=== PATIENT | female | born 1940 | race African-American/Black ===

== ENCOUNTER 2021-05-02 08:44 | Inpatient (IN) | payer OTHER, SELFPAY ==
[~2021-05-02] VITALS: Ht 157.5 cm; Wt 59.1 kg
[2021-05-02 08:51] VITALS: BP_SYST 142
--- NOTE | 2021-05-02 08:51 | NUR ---
Patient to ER bed 6 to gown for evaluation. Side rails up. Report given to Patricia RN.
--- NOTE | 2021-05-02 09:04 | NUR ---
Patient awake, alert and oriented to person, place, time and situation. Reports "15/10" pain to right knee; extreme swelling noted on assessment. HD fistula noted to right arm. PMH of hysterectomy, right mastectomy and unknown right hand surgery. Unsure of drug allergies. VSS. Will continue to monitor.
--- NOTE | 2021-05-02 09:08 | NUR ---
Dr Gifford at bedside to evaluate patient.
[2021-05-02] MEDS ORDERED: MORPHINE 4 MG INJ. 4 MG/ML VIAL IM ONE (09:30)
--- NOTE | 2021-05-02 09:36 | NUR ---
Per dtr, patient's dialysis has been rescheduled for tomorrow. She stated patient's "labs are normal" so she can go tomorrow afternoon.
[2021-05-02] MEDS ORDERED: LIDOCAINE 2%, 20 ML MDV INJ ONE (09:45)
[2021-05-02] MEDS ORDERED: BUPIVACAINE /PF 0.25% 30 ML VIAL INJ ONE (09:45)
[2021-05-02 09:48] LABS: BASOPHILS % (AUTO) 0.2 % (0.0-2.0); EOSINOPHILS % (AUTO) 0.2 % (0.0-4.0); HEMOGLOBIN 13.1 g/dL (12.0-16.0); LYMPHOCYTES # (AUTO) 0.6 K/uL (1.0-5.5); LYMPHOCYTES % (AUTO) 3.8 % (20.5-51.5); MEAN CORPUSCULAR HEMOGLOBIN 32 pg (27-31); MEAN CORPUSCULAR HGB CONC 34 % (32-36); MEAN CORPUSCULAR VOLUME 95 fL (79.0-98.0); MONOCYTES # (AUTO) 1.1 K/uL (0.0-1.0); MONOCYTES % (AUTO) 7.1 % (1.7-9.3); NEUTROPHILS # (AUTO) 13.7 K/uL (1.8-7.7); NEUTROPHILS % (AUTO) 88.7 % (40.0-70.0); PLATELET COUNT (AUTO) 127 K/uL (130-430); RED BLOOD CELL COUNT(AUTO) 4.12 MIL/uL (4.2-6.2); WHITE BLOOD COUNT (AUTO) 15.4 K/uL (4.8-10.8)
--- NOTE | 2021-05-02 09:48 | NUR ---
Carine cloud in ED - 05/02/21 at 0950 by SDEDJT Xray being done at bedside
--- NOTE | 2021-05-02 09:50 | NUR ---
Pt being transported to [facility] via wheelchair
[2021-05-02 09:54] LABS: ANION GAP 13 (5-15); CALCIUM 8.8 mg/dL (8.4-11.0); CHLORIDE 94 mmol/L (98-107); GLUCOSE 78 mg/dL (70-99); SODIUM SERUM 131 mmol/L (136-145); UREA NITROGEN, BLOOD 73 mg/dL (8-21)
[2021-05-02 09:58] LABS: INR 1.3 (0.8-1.2); PROTHROMBIN TIME 13.5 SECS (9.5-12.5)
--- NOTE | 2021-05-02 09:58 | NUR ---
Returned from Xray without complication.
[2021-05-02 10:00] LABS: ALANINE AMINOTRANSFERASE 19 U/L (12-78); ASPARTATE AMINOTRANSFERASE 28 U/L (10-37); TOTAL BILIRUBIN 0.3 mg/dL (0.0-1.0)
--- NOTE | 2021-05-02 10:00 | NUR ---
Dr Gifford at bedside to perform knee procedure.
[2021-05-02 10:08] LABS: CREATININE 8.68 mg/dL (0.55-1.30); POTASSIUM 6.3 mmol/L (3.5-5.1)
[2021-05-02] MEDS ORDERED: SODIUM POLYSTYRENE SULFONATE 15 GM/60 ML UDBTL PO ONE (10:15)
[2021-05-02] MEDS ORDERED: SODIUM BICARBONATE 0.5 MEQ/ML VIAL INJ ONE (10:15)
[2021-05-02] MEDS ORDERED: INSULIN REGULAR, HUMAN 10 UNITS/0.1 ML INJ IVP ONE (10:15)
[2021-05-02] MEDS ORDERED: DEXTROSE 50% JECT 50 ML DISP.SYRIN IVP ONE (10:15)
--- NOTE | 2021-05-02 10:34 | NUR ---
Right knee fluid sent to lab for evaluation
[2021-05-02] MEDS ORDERED: PIPERACILLIN/TAZO 3.375 GM in NS 50 ML IV ONE (10:45)
[2021-05-02] MEDS ORDERED: VANCOMYCIN HCL 1,000 MG in NS 250 ML IV ONE (10:45)
[2021-05-02] MEDS ORDERED: LOSA50TA3 PO (10:49)
[2021-05-02] MEDS ORDERED: HYDR-4038 PO (10:49)
[2021-05-02] MEDS ORDERED: LEVO25TA7 PO (10:49)
[2021-05-02] MEDS ORDERED: COR12.5 PO (10:49)
[2021-05-02] MEDS ORDERED: ALPR2TAB7 PO (10:49)
[2021-05-02] MEDS ORDERED: PRO40 PO (10:49)
[2021-05-02] MEDS ORDERED: NEU100 PO (10:49)
--- NOTE | 2021-05-02 10:49 | NUR ---
Medication reconciliation completed with information provided by dtr. Any prior medication reconciliation on file was reviewed and corrected.
[2021-05-02] MEDS ORDERED: SODIUM BICARBONATE 8.4% JECT 50 MEQ/50 ML SYRINGE IVP ONE (11:45)
[2021-05-02] MEDS ORDERED: PIPERACILLIN/TAZOBACTAM 3.375 GM/VIAL (ZOSYN) IV ONE (11:57)
--- NOTE | 2021-05-02 12:07 | NUR ---
Dr Kinsey at bedside to evaluate patient.
--- NOTE | 2021-05-02 12:08 | NUR ---
Blood sugar 148. Reported to Dr Gifford. No new orders given.
[2021-05-02] MEDS ORDERED: VANCOMYCIN HCL 1000 MG/VIAL IV ONE (12:37)
--- NOTE | 2021-05-02 14:10 | NUR ---
MRSA swab collected at bedside and sent to lab
[2021-05-02] MEDS ORDERED: SODIUM POLYSTYRENE SULFONATE 15 GM/60 ML UDBTL ONE ×2 (14:35→14:37)
[2021-05-02] MEDS: ALBUTEROL SULFATE 0.083% 2.5 MG/3 ML VIAL.NEB INH ONE ×2 (15:45→16:05)
--- NOTE | 2021-05-02 16:03 | NUR ---
Spoke with Dr Bianchi and RT to clarify Albuterol order. Also spoke with lab to confirm repeat potassium had been drawn; awaiting results. Will continue to monitor.
[2021-05-02 16:06] LABS: ANION GAP 8 (5-15); CALCIUM 8.6 mg/dL (8.4-11.0); CHLORIDE 95 mmol/L (98-107); GLUCOSE 57 mg/dL (70-99); SODIUM SERUM 129 mmol/L (136-145); UREA NITROGEN, BLOOD 76 mg/dL (8-21)
[2021-05-02 16:11] LABS: CREATININE 8.92 mg/dL (0.55-1.30)
[2021-05-02 16:12] LABS: POTASSIUM 5.9 mmol/L (3.5-5.1)
--- NOTE | 2021-05-02 17:26 | NUR ---
Dr Bianchi at bedside to provide update to dtr
--- NOTE | 2021-05-02 19:06 | NUR ---
Report given to Wilbert BAKER.
--- NOTE | 2021-05-02 19:30 | NUR ---
pt had a diarhea bm, pt cleaned and changed. gown replaced.
--- NOTE | 2021-05-02 20:50 | NUR ---
Transfer to 120A via ACLS protocol. Licensed nurse present. IV present no signs or symptoms of infiltration.
[2021-05-02 20:54] VITALS: BP_SYST 110
--- NOTE | 2021-05-02 21:43 | NUR ---
ADMIT NOTE Received pt from ER to the floor with a diagnosis of hyperkalemia septic ARTHRITIS. Admission process initiated. patient oriented to pain management, safety and call light-teach back done HD ongoing @ the bedside.
[2021-05-02] MEDS ORDERED: NALOXONE HCL 0.4 MG/ML AMP (NARCAN) IVP PRN ×2 (22:15)
[2021-05-02] MEDS ORDERED: HYDROcodone/ACETAMIN 10-325 MG TAB PO PRN (22:15)
[2021-05-02] MEDS ORDERED: ONDANSETRON HCL 4 MG/2 ML VIAL IVP PRN (22:15)
--- NOTE | 2021-05-02 23:42 | NUR ---
Pt sustaining increased heart rate 160-200 after dialysis with decreased blood pressure systolic <70. Charge nurse made aware, paging MD
--- NOTE | 2021-05-02 23:54 | NUR ---
PAGED DR. Eyal SNOWDEN, SPOKE W/ PETE.
[2021-05-03] VITALS (21 sets, daily range): BP systolic 87–133
--- NOTE | 2021-05-03 00:09 | NUR ---
SPOKE WITH DR Campoverde New orders received, 500 cc bolus and cardiology consult
--- NOTE | 2021-05-03 00:45 | NUR ---
CONSULT PAGED DR. MON , INCREASED HR, SPOKE W/ PERCY.
--- NOTE | 2021-05-03 00:52 | NUR ---
SPOKE WITH DR MON regarding increased HR, new orders received
--- NOTE | 2021-05-03 00:54 | NUR ---
HIGH ALERT NOTE: Called Dr. Howard back at identified within the medical roster to verify physician authenticity.
--- NOTE | 2021-05-03 01:05 | NUR ---
CONSULT DR. MARTIN, SEPTIC ARTHRITIS, AT NURSING STATION.
--- NOTE | 2021-05-03 01:10 | NUR ---
Dr Post at bedside Ordered to transfer pt to ICU along with albumin bolus for decreased BP
[2021-05-03] MEDS ORDERED: ALBUMIN HUMAN 25% 100 ML IV ONE ×2 (01:15→01:45)
[2021-05-03] MEDS ORDERED: AMIODARONE HCL 450 MG in D5W 241 ML IV SCH (01:15)
[2021-05-03] MEDS ORDERED: NOREPINEPHRINE BITARTRATE 4 MG in D5W 246 ML IV PRN (01:15)
[2021-05-03] MEDS ORDERED: AMIODARONE HCL 150 MG/3ML VIAL IVP ONE (01:15)
[2021-05-03] MEDS: D5/0.45 NS 1,000 ML IV SCH ×2 (01:55→08:15)
--- NOTE | 2021-05-03 03:02 | NUR ---
TRANSFER OF CARE Pt transferred to ICU, report given to RN. Pt daughter at bedside
--- NOTE | 2021-05-03 03:06 | NUR ---
Transfer Patient transferred from [facility] to ICU -4. Patient has a temp of 100.5. PRN tyenol given. patient's tachycardia, blood pressure 101/53 and o2 is 98 on nasal cannula. NO signs or symptoms of distress.
[2021-05-03] MEDS ORDERED: AMIODARONE HCL 450 MG/9 ML VIAL IV ONE (03:49)
[2021-05-03] MEDS ORDERED: PIPERACILLIN/TAZOBACTAM 2.25 GM VIAL IV ONE (03:58)
--- NOTE | 2021-05-03 05:05 | NUR ---
Nutrition Update Milton Scale 15 noted. Pt admitted for Septic arthritis and hyperkalemia Diet: Regular BMI: 20.2 kg/m2 RD to follow per nutrition care standards.
--- NOTE | 2021-05-03 05:26 | NUR ---
PAGED FOR CONSULT DIALED: [phone] SPOKE TO: ISMAEL
--- NOTE | 2021-05-03 05:27 | NUR ---
MD GUZMAN FOR CONSULT KORI DUFF DIALED: [phone] SPOKE TO:RADHA
--- NOTE | 2021-05-03 05:27 | NUR ---
PAGESvetlana FOR CONSULT BLAKE SMITH DIALED: [phone] SPOKE TO: HAILEE
--- NOTE | 2021-05-03 05:28 | NUR ---
MD GUZMAN FOR CONSULT DIALED: [phone] SPOKE TO: HAILEE
[2021-05-03] MEDS: PIPERACILLIN/TAZO 2.25G/DEX-IS 50 ML IV SCH ×3 (05:41→17:25)
[2021-05-03] MEDS: ACETAMINOPHEN 325 MG TABLET PO PRN ×2 (05:42→22:58)
--- NOTE | 2021-05-03 06:11 | NUR ---
exchange called back and stated that the patient can no longer get consult for DR. Dey (orthopedics) because she is no longer a patient for them
[2021-05-03] MEDS ORDERED: LEVOTHYROXINE SODIUM 0.025 MG TABLET PO SCH (07:00)
[2021-05-03 07:35] LABS: ALANINE AMINOTRANSFERASE 18 U/L (12-78); ALBUMIN 3.1 g/dL (3.4-4.8); ANION GAP 13 (5-15); ASPARTATE AMINOTRANSFERASE 24 U/L (10-37); CALCIUM 8.8 mg/dL (8.4-11.0); CHLORIDE 99 mmol/L (98-107); CREATININE 4.82 mg/dL (0.55-1.30); GLUCOSE 124 mg/dL (70-99); PHOSPHORUS 5.7 mg/dL (2.7-4.5); POTASSIUM 3.3 mmol/L (3.5-5.1); SODIUM SERUM 140 mmol/L (136-145); TOTAL BILIRUBIN 0.7 mg/dL (0.0-1.0); UREA NITROGEN, BLOOD 32 mg/dL (8-21)
[2021-05-03 08:15] LABS: BASOPHILS % (AUTO) 0.1 % (0.0-2.0); EOSINOPHILS % (AUTO) 0.6 % (0.0-4.0); HEMATOCRIT 31.4 % (36-48); HEMOGLOBIN 10.7 g/dL (12.0-16.0); LYMPHOCYTES # (AUTO) 0.2 K/uL (1.0-5.5); LYMPHOCYTES % (AUTO) 3.9 % (20.5-51.5); MEAN CORPUSCULAR HEMOGLOBIN 32 pg (27-31); MEAN CORPUSCULAR HGB CONC 34 % (32-36); MEAN CORPUSCULAR VOLUME 96 fL (79.0-98.0); MONOCYTES # (AUTO) 0.5 K/uL (0.0-1.0); MONOCYTES % (AUTO) 10.7 % (1.7-9.3); NEUTROPHILS # (AUTO) 4.3 K/uL (1.8-7.7); NEUTROPHILS % (AUTO) 84.7 % (40.0-70.0); PLATELET COUNT (AUTO) 105 K/uL (130-430); RED BLOOD CELL COUNT(AUTO) 3.29 MIL/uL (4.2-6.2); RED CELL DISTRIBUTION WIDTH 14.9 % (9.0-15.0); WHITE BLOOD COUNT (AUTO) 5.1 K/uL (4.8-10.8)
[2021-05-03] MEDS: GABAPENTIN 100 MG CAPSULE PO SCH (08:53)
[2021-05-03] MEDS: PANTOPRAZOLE SODIUM 40 MG TAB PO SCH (08:53)
[2021-05-03] MEDS: NEPHROVITE, (FOLIC ACID/VITAMIN B COMP W-C 1 TAB) PO SCH (08:54)
[2021-05-03] MEDS: LEVOTHYROXINE SODIUM 0.025 MG TABLET PO SCH (08:56)
[2021-05-03] MEDS: hydrALAZINE HCL 25 MG TABLET PO SCH ×2 (08:57→21:00)
[2021-05-03] MEDS ORDERED: LOSARTAN POTASSIUM 50 MG TABLET (COZAAR) PO SCH (09:00)
[2021-05-03] MEDS ORDERED: CARVEDILOL 12.5 MG TABLET (COREG) PO SCH (09:00)
[2021-05-03] MEDS: ALPRAZolam 0.25 MG TABLET PO SCH ×2 (09:00→22:12)
[2021-05-03] MEDS ORDERED: CARVEDILOL 6.25 MG TABLET (COREG) PO SCH (09:00)
[2021-05-03] MEDS ORDERED: LOSARTAN POTASSIUM 25 MG TABLET PO SCH (09:00)
--- NOTE | 2021-05-03 09:52 | NUR ---
Call placed to [facility] [phone]-regarding patient's admission and need to transfer due to lack of orthopedic provider to see patient.
[2021-05-03] MEDS ORDERED: HEPARIN SODIUM,PORCINE 5,000 UNITS/ML VIAL SUBCUT ONE (11:45)
--- NOTE | 2021-05-03 14:17 | NUR ---
Spoke w/Mony Baldev [phone] at [facility]-she stated pt is out of area, contact for hospital auth is Lydia at [facility] [phone]. She also stated [facility] has 99 patients currently in the ER waiting for beds. She will put the patient on the waiting list but she doubts there will be a bed available any time soon. Contacts for med gp for out pt services Max @[phone], after hrs @[phone]. I spoke w/the patient's daughter, Emmanuelle [phone], and gave her the information I had about the patient's transfer.
--- NOTE | 2021-05-03 18:10 | NUR ---
Transfer note Received a call from Dr. Bianchi, the ER MD who took care of the patient in the ED. He wanted info as to why the patient didn't go to [facility] since arrangements had been made and bed secured. There was no documentation in the record for anyone to see. After conversation, ER MT came down to clarify conversation.
--- NOTE | 2021-05-03 18:40 | NUR ---
PAGED FOR ORDERS SPOKE TO:
--- NOTE | 2021-05-03 19:10 | NUR ---
OPENING NOTE SBAR report received from day RN, all cares assumed. Pt on O2 2LPM via NC, maintaining saturation >90%.
--- NOTE | 2021-05-03 19:10 | NUR ---
Spoke with Dr. Campoverde and informed him that Dr. Bianchi would like to speak with him about the transfer that was arranged from the ED to [facility] once pt received dialysis as an inpatient. He said he would call him.
--- NOTE | 2021-05-03 20:00 | NUR ---
Pt cleaned, linen changed. Pt moans and grimaces with turning. Will continue to monitor.
--- NOTE | 2021-05-03 20:05 | NUR ---
IV catheter out, placed new PIV in left forearm, 20g. Blood return noted, flushed with normal saline. No redness, warmth or swelling at site.
--- NOTE | 2021-05-03 20:30 | NUR ---
Family at bedside, update given, all questions answered at this time.
[2021-05-03] MEDS: CARVEDILOL 3.125 MG TABLET (COREG) PO SCH (21:00)
[2021-05-03] MEDS: LOSARTAN POTASSIUM 50 MG TABLET (COZAAR) PO SCH (21:00)
[2021-05-03] MEDS: HEPARIN SODIUM,PORCINE 5,000 UNITS/ML VIAL SUBCUT SCH (22:11)
[2021-05-04] VITALS (20 sets, daily range): BP systolic 91–166
[2021-05-04] MEDS: PIPERACILLIN/TAZO 2.25G/DEX-IS 50 ML IV SCH ×3 (01:33→17:07)
[2021-05-04] MEDS: D5/0.45 NS 1,000 ML IV SCH ×2 (05:22→14:15)
[2021-05-04] MEDS ORDERED: NOREPINEPHRINE 4 MG/4 ML VIAL IV ONE ×2 (06:04→12:09)
[2021-05-04 06:24] LABS: BASOPHILS % (AUTO) 0.1 % (0.0-2.0); EOSINOPHILS % (AUTO) 0.2 % (0.0-4.0); HEMATOCRIT 30.2 % (36-48); HEMOGLOBIN 10.2 g/dL (12.0-16.0); LYMPHOCYTES # (AUTO) 0.4 K/uL (1.0-5.5); LYMPHOCYTES % (AUTO) 6.2 % (20.5-51.5); MEAN CORPUSCULAR HEMOGLOBIN 32 pg (27-31); MEAN CORPUSCULAR HGB CONC 34 % (32-36); MEAN CORPUSCULAR VOLUME 95 fL (79.0-98.0); MONOCYTES # (AUTO) 0.4 K/uL (0.0-1.0); MONOCYTES % (AUTO) 7.5 % (1.7-9.3); PLATELET COUNT (AUTO) 78 K/uL (130-430); RED BLOOD CELL COUNT(AUTO) 3.17 MIL/uL (4.2-6.2); RED CELL DISTRIBUTION WIDTH 14.7 % (9.0-15.0); WHITE BLOOD COUNT (AUTO) 5.8 K/uL (4.8-10.8)
[2021-05-04 06:43] LABS: ALANINE AMINOTRANSFERASE 11 U/L (12-78); ALBUMIN 2.3 g/dL (3.4-4.8); ANION GAP 15 (5-15); ASPARTATE AMINOTRANSFERASE 34 U/L (10-37); CALCIUM 7.5 mg/dL (8.4-11.0); CHLORIDE 95 mmol/L (98-107); CREATININE 5.92 mg/dL (0.55-1.30); GLUCOSE 89 mg/dL (70-99); PHOSPHORUS 6.7 mg/dL (2.7-4.5); POTASSIUM 3.1 mmol/L (3.5-5.1); SODIUM SERUM 136 mmol/L (136-145); TOTAL BILIRUBIN 0.4 mg/dL (0.0-1.0); UREA NITROGEN, BLOOD 45 mg/dL (8-21); VANCOMYCIN,RANDOM 10.8 ug/mL
--- NOTE | 2021-05-04 07:30 | NUR ---
INITIAL REPORT RECEIVED FROM NIGHT RN FOR CONTINUING OF CARE. ALSO RECEIVED ORDER FROM MD MON TO DISCONTINUED AMIODARONE DRIP & CHANGE TO PO AMIODARONE 200 MG DAILY
[2021-05-04 08:08] LABS: C-REACTIVE PROTEIN QUANT 35.2 mg/dL (0-0.5)
[2021-05-04 08:58] LABS: ERYTHROCYTE SEDIMENTATION RATE 54 MM/HR (0-20)
[2021-05-04] MEDS: PANTOPRAZOLE SODIUM 40 MG TAB PO SCH (09:00)
[2021-05-04] MEDS: GABAPENTIN 100 MG CAPSULE PO SCH (09:00)
[2021-05-04] MEDS: LOSARTAN POTASSIUM 50 MG TABLET (COZAAR) PO SCH (09:00)
[2021-05-04] MEDS: hydrALAZINE HCL 25 MG TABLET PO SCH ×2 (09:00→22:28)
[2021-05-04] MEDS: ALPRAZolam 0.25 MG TABLET PO SCH ×2 (09:00→22:28)
[2021-05-04] MEDS ORDERED: AMIODARONE HCL 200 MG TABLET PO ONE (09:00)
[2021-05-04] MEDS: CARVEDILOL 3.125 MG TABLET (COREG) PO SCH (09:00)
[2021-05-04] MEDS: NEPHROVITE, (FOLIC ACID/VITAMIN B COMP W-C 1 TAB) PO SCH (09:08)
[2021-05-04] MEDS: ACETAMINOPHEN 325 MG TABLET PO PRN (09:09)
[2021-05-04] MEDS: LEVOTHYROXINE SODIUM 0.025 MG TABLET PO SCH (09:09)
--- NOTE | 2021-05-04 13:30 | NUR ---
Spoke w/Dr Bertin Rincon. He has agreed to see the patient for orthopedic consult. AISHA will be sent to him. He will see the patient Sunday evening or AM.
[2021-05-04] MEDS: HEPARIN SODIUM,PORCINE 5,000 UNITS/ML VIAL SUBCUT SCH ×2 (15:00→21:00)
[2021-05-04] MEDS ORDERED: KCL 40 mEq in 100 mL (PREMIX) 100 ML IV ONE (17:30)
[2021-05-04] MEDS ORDERED: POTASSIUM CHLORIDE 40 MEQ in NS 250 ML IV ONE (18:00)
--- NOTE | 2021-05-04 19:10 | NUR ---
OPENING NOTE SBAR report received from day RN, all cares assumed. Pt on 5 LPM oxygen via NC.
--- NOTE | 2021-05-04 19:30 | NUR ---
ENDORSEMENT REPORT GIVEN TO NIGHT RN FOR CONTINUING OF CARE
--- NOTE | 2021-05-04 22:30 | NUR ---
Dr. Rincon at bedside for consult. Family at bedside. Plan of care being discussed with family.
[2021-05-05] VITALS (21 sets, daily range): BP systolic 92–155
[2021-05-05] MEDS: PIPERACILLIN/TAZO 2.25G/DEX-IS 50 ML IV SCH ×3 (01:57→16:01)
[2021-05-05] MEDS: D5/0.45 NS 1,000 ML IV SCH ×3 (01:57→20:15)
[2021-05-05 06:28] LABS: HEMATOCRIT 35.8 % (36-48); HEMOGLOBIN 11.6 g/dL (12.0-16.0); MEAN CORPUSCULAR HEMOGLOBIN 31 pg (27-31); MEAN CORPUSCULAR HGB CONC 32 % (32-36); MEAN CORPUSCULAR VOLUME 96 fL (79.0-98.0); PLATELET COUNT (AUTO) 80 K/uL (130-430); RED BLOOD CELL COUNT(AUTO) 3.75 MIL/uL (4.2-6.2); RED CELL DISTRIBUTION WIDTH 14.9 % (9.0-15.0); WHITE BLOOD COUNT (AUTO) 13.7 K/uL (4.8-10.8)
[2021-05-05 06:39] LABS: ANION GAP 10 (5-15); CALCIUM 8.4 mg/dL (8.4-11.0); CHLORIDE 100 mmol/L (98-107); GLUCOSE 112 mg/dL (70-99); PHOSPHORUS 3.1 mg/dL (2.7-4.5); SODIUM SERUM 134 mmol/L (136-145); UREA NITROGEN, BLOOD 29 mg/dL (8-21)
[2021-05-05 07:44] LABS: C-REACTIVE PROTEIN QUANT 29.8 mg/dL (0-0.5)
[2021-05-05] MEDS: hydrALAZINE HCL 25 MG TABLET PO SCH ×2 (09:00→21:00)
[2021-05-05] MEDS: ALPRAZolam 0.25 MG TABLET PO SCH ×2 (09:00→21:00)
[2021-05-05] MEDS: GABAPENTIN 100 MG CAPSULE PO SCH (09:40)
[2021-05-05] MEDS: AMIODARONE HCL 200 MG TABLET PO SCH (09:43)
[2021-05-05] MEDS: LEVOTHYROXINE SODIUM 0.025 MG TABLET PO SCH (09:43)
[2021-05-05] MEDS: NEPHROVITE, (FOLIC ACID/VITAMIN B COMP W-C 1 TAB) PO SCH (09:44)
[2021-05-05] MEDS: PANTOPRAZOLE SODIUM 40 MG TAB PO SCH (09:46)
[2021-05-05] MEDS: HEPARIN SODIUM,PORCINE 5,000 UNITS/ML VIAL SUBCUT SCH ×2 (09:50→22:13)
[2021-05-05 10:32] LABS: ERYTHROCYTE SEDIMENTATION RATE 70 MM/HR (0-20)
--- NOTE | 2021-05-05 14:38 | NUR ---
Patient seen by Dr Rincon-jimena was given [facility] LETA Freeman's phone # [phone] and authorization # [id number] for inpatient stay and physician authorization.
[2021-05-05 15:19] LABS: BASOPHILS % (MANUAL) 0 % (0-2)
[2021-05-05 15:22] LABS: BAND % (MANUAL) 8 % (0-6); EOSINOPHILS % (MANUAL) 1 % (0-7); LYMPHOCYTES % (MANUAL) 5 % (20-46); METAMYELOCYTES % 0 % (0-0); MONOCYTES % (MANUAL) 5 % (0-11)
--- NOTE | 2021-05-05 17:08 | NUR ---
Dietitian Recommendations * Recommend renal, finely chopped diet w/ Nepro TID (ONS provides 1260 kcal/day, 57 gm protein/day) * Encourage increase PO intakes * Adhere to pt food preferences LP, RD Please refer to Nutrition Assessment for details. Addendum: 05/05/21 at [address] Amended: Links added.
[2021-05-05] MEDS: ACETAMINOPHEN 325 MG TABLET PO PRN (17:13)
--- NOTE | 2021-05-05 19:30 | NUR ---
Patient's heart rate [address] Howard was contacted; orders to start Amiodarone drip received.
--- NOTE | 2021-05-05 19:33 | NUR ---
PAGED DR. MON ORDERS [phone] SPOKE WITH CRISTIAN
[2021-05-05] MEDS ORDERED: AMIODARONE HCL 150 MG in D5W 100 ML IV ONE (19:45)
--- NOTE | 2021-05-05 19:52 | NUR ---
PAGED DR. GORDON ORDERS [phone] SPOKE WITH IVONE
--- NOTE | 2021-05-05 20:00 | NUR ---
Dr Correa contacted for clearance on placement of Picc line; ok to place midline to Left arm.
--- NOTE | 2021-05-05 20:45 | NUR ---
Call received from radiology regarding CT abd/pelvis with contrast. Unable to complete at this time due to patient's condition unstable. Heart rate 185 and BP 87/40. Requires continuous infusion of amiodarone.
--- NOTE | 2021-05-05 21:00 | NUR ---
Mid line placed by Dominic RN picc line nurse. No complications reported. OK to use.
--- NOTE | 2021-05-05 21:01 | NUR ---
Mid line Left upper arm in place, patent and ready for use.
[2021-05-05] MEDS: AMIODARONE HCL 450 MG in D5W 241 ML IV SCH (22:07)
[2021-05-06] VITALS (19 sets, daily range): BP systolic 113–187
[2021-05-06] MEDS: PIPERACILLIN/TAZO 2.25G/DEX-IS 50 ML IV SCH ×3 (00:43→17:38)
--- NOTE | 2021-05-06 01:00 | NUR ---
Patient's heart rate has decreased to 85 and converted to NSR.
--- NOTE | 2021-05-06 02:00 | NUR ---
Dr Loni Post at bedside for evaluation; no new orders received. Dr Post stated patient will be ready for transfer in am.
[2021-05-06] MEDS ORDERED: AMIODARONE HCL 450 MG/9 ML VIAL IV ONE (04:25)
[2021-05-06] MEDS: AMIODARONE HCL 450 MG in D5W 241 ML IV SCH (04:32)
[2021-05-06] MEDS: D5/0.45 NS 1,000 ML IV SCH ×2 (04:42→16:26)
[2021-05-06 06:37] LABS: BASOPHILS % (AUTO) 0.1 % (0.0-2.0); EOSINOPHILS # (AUTO) 0.2 K/uL (0.0-0.4); EOSINOPHILS % (AUTO) 2.3 % (0.0-4.0); HEMATOCRIT 32.2 % (36-48); HEMOGLOBIN 10.7 g/dL (12.0-16.0); LYMPHOCYTES # (AUTO) 0.4 K/uL (1.0-5.5); MEAN CORPUSCULAR HEMOGLOBIN 31 pg (27-31); MEAN CORPUSCULAR HGB CONC 33 % (32-36); MEAN CORPUSCULAR VOLUME 94 fL (79.0-98.0); MONOCYTES # (AUTO) 0.5 K/uL (0.0-1.0); MONOCYTES % (AUTO) 5.7 % (1.7-9.3); NEUTROPHILS # (AUTO) 8.2 K/uL (1.8-7.7); PLATELET COUNT (AUTO) 52 K/uL (130-430); RED BLOOD CELL COUNT(AUTO) 3.42 MIL/uL (4.2-6.2); RED CELL DISTRIBUTION WIDTH 15.3 % (9.0-15.0); WHITE BLOOD COUNT (AUTO) 9.3 K/uL (4.8-10.8)
[2021-05-06 06:47] LABS: ALANINE AMINOTRANSFERASE 15 U/L (12-78); ALBUMIN 1.6 g/dL (3.4-4.8); ANION GAP 12 (5-15); ASPARTATE AMINOTRANSFERASE 22 U/L (10-37); CALCIUM 8.1 mg/dL (8.4-11.0); CHLORIDE 94 mmol/L (98-107); CREATININE 4.49 mg/dL (0.55-1.30); GLUCOSE 101 mg/dL (70-99); PHOSPHORUS 2.7 mg/dL (2.7-4.5); POTASSIUM 3.6 mmol/L (3.5-5.1); SODIUM SERUM 126 mmol/L (136-145); TOTAL BILIRUBIN 0.4 mg/dL (0.0-1.0); UREA NITROGEN, BLOOD 38 mg/dL (8-21)
[2021-05-06 07:35] LABS: NEUTROPHILS % (AUTO) 87.9 % (40.0-70.0)
[2021-05-06] MEDS: hydrALAZINE HCL 25 MG TABLET PO SCH ×2 (09:00→21:00)
[2021-05-06] MEDS: ALPRAZolam 0.25 MG TABLET PO SCH ×2 (09:00→21:00)
[2021-05-06] MEDS ORDERED: DIATR MEGLU/DIATRIZ SOD 30 ML SOLUTION PO ONE (09:13)
[2021-05-06] MEDS: NEPHROVITE, (FOLIC ACID/VITAMIN B COMP W-C 1 TAB) PO SCH (09:43)
[2021-05-06] MEDS: AMIODARONE HCL 200 MG TABLET PO SCH (09:43)
[2021-05-06] MEDS: LEVOTHYROXINE SODIUM 0.025 MG TABLET PO SCH (09:43)
[2021-05-06] MEDS: GABAPENTIN 100 MG CAPSULE PO SCH (09:44)
[2021-05-06] MEDS: PANTOPRAZOLE SODIUM 40 MG TAB PO SCH (09:44)
[2021-05-06] MEDS: HEPARIN SODIUM,PORCINE 5,000 UNITS/ML VIAL SUBCUT SCH ×2 (09:44→21:29)
--- NOTE | 2021-05-06 10:00 | NUR ---
Dr simms made round and s/w daughter at the bedside discuss about the poc. order to proceed CT scan of A/P with IV contrast, stated no need for oral contrast. Devil Dog don informed.
--- NOTE | 2021-05-06 11:00 | NUR ---
Us abdomen and CT scan of A/P done.
[2021-05-06 11:44] LABS: C-REACTIVE PROTEIN QUANT 20.3 mg/dL (0-0.5)
[2021-05-06 13:55] LABS: ERYTHROCYTE SEDIMENTATION RATE 66 MM/HR (0-20)
--- NOTE | 2021-05-06 14:30 | NUR ---
Called Dr. Pascual with a consult, spoke with Conchita from doctors office
--- NOTE | 2021-05-06 14:40 | NUR ---
Called Dr. Avila with a consult,spoke with Olivia from doctors office
--- NOTE | 2021-05-06 15:00 | NUR ---
Carmen LEMOS MADE AWARE ABOUT THE RESULT OF CT SCAN AND ULTRASOUND. S/W DAUGHTER AT THE BEDSIDE.
--- NOTE | 2021-05-06 16:30 | NUR ---
patient dialyzed 2 liters output. vital sign stable, afebrile. family at the bedside.
--- NOTE | 2021-05-06 19:00 | NUR ---
NOTES;NO SIGN AND SYMPTOMS OF DISTRESS.VITAL SIGN STABLE, AFEBRILE. NO SIGNIFICANT CHANGES OF CONDITION. FAMILY AT THE BEDSIDE.
[2021-05-06] MEDS: HYDROcodone/ACETAMIN 5-325 MG TAB (NORCO/ VICODIN) PO PRN (20:32)
[2021-05-07] VITALS (17 sets, daily range): BP systolic 112–141
[2021-05-07] MEDS: PIPERACILLIN/TAZO 2.25G/DEX-IS 50 ML IV SCH ×2 (00:48→09:02)
[2021-05-07] MEDS: D5/0.45 NS 1,000 ML IV SCH ×3 (01:42→15:14)
[2021-05-07 07:40] LABS: BASOPHILS % (AUTO) 0.2 % (0.0-2.0); EOSINOPHILS # (AUTO) 0.1 K/uL (0.0-0.4); EOSINOPHILS % (AUTO) 0.8 % (0.0-4.0); HEMATOCRIT 33.6 % (36-48); HEMOGLOBIN 11.2 g/dL (12.0-16.0); LYMPHOCYTES # (AUTO) 0.6 K/uL (1.0-5.5); LYMPHOCYTES % (AUTO) 5.7 % (20.5-51.5); MEAN CORPUSCULAR HEMOGLOBIN 31 pg (27-31); MEAN CORPUSCULAR HGB CONC 33 % (32-36); MEAN CORPUSCULAR VOLUME 94 fL (79.0-98.0); MONOCYTES # (AUTO) 1.1 K/uL (0.0-1.0); MONOCYTES % (AUTO) 10.5 % (1.7-9.3); NEUTROPHILS # (AUTO) 8.3 K/uL (1.8-7.7); NEUTROPHILS % (AUTO) 82.8 % (40.0-70.0); RED BLOOD CELL COUNT(AUTO) 3.57 MIL/uL (4.2-6.2); RED CELL DISTRIBUTION WIDTH 14.9 % (9.0-15.0); WHITE BLOOD COUNT (AUTO) 10.1 K/uL (4.8-10.8)
--- NOTE | 2021-05-07 08:00 | NUR ---
Initial Awake, responsive, still has pain, family at bedside. On amiodarone drip. Hr at 87. denies any chest pain or shortness of breath. on o2 2l, tolerating well.
[2021-05-07] MEDS: GABAPENTIN 100 MG CAPSULE PO SCH ×2 (09:00→09:03)
[2021-05-07] MEDS: ALPRAZolam 0.25 MG TABLET PO SCH ×3 (09:00→21:00)
[2021-05-07] MEDS: NEPHROVITE, (FOLIC ACID/VITAMIN B COMP W-C 1 TAB) PO SCH (09:03)
[2021-05-07] MEDS: LEVOTHYROXINE SODIUM 0.025 MG TABLET PO SCH (09:04)
[2021-05-07] MEDS: AMIODARONE HCL 200 MG TABLET PO SCH (09:04)
[2021-05-07] MEDS: PANTOPRAZOLE SODIUM 40 MG TAB PO SCH (09:04)
[2021-05-07] MEDS: HEPARIN SODIUM,PORCINE 5,000 UNITS/ML VIAL SUBCUT SCH (09:05)
[2021-05-07] MEDS: hydrALAZINE HCL 25 MG TABLET PO SCH ×2 (09:07→21:00)
[2021-05-07 09:57] LABS: ANION GAP 9 (5-15); CALCIUM 8.6 mg/dL (8.4-11.0); CHLORIDE 95 mmol/L (98-107); CREATININE 3.19 mg/dL (0.55-1.30); GLUCOSE 93 mg/dL (70-99); PHOSPHORUS 2.3 mg/dL (2.7-4.5); POTASSIUM 3.7 mmol/L (3.5-5.1); SODIUM SERUM 131 mmol/L (136-145); UREA NITROGEN, BLOOD 23 mg/dL (8-21)
--- NOTE | 2021-05-07 10:00 | NUR ---
MD ROUNDS DR. HIRSCH HERE AND SEEN PATIENT.
[2021-05-07 10:55] LABS: PLATELET COUNT (AUTO) 47 K/uL (130-430)
--- NOTE | 2021-05-07 11:05 | NUR ---
MD Christie aden, re: platelet results.
[2021-05-07 11:28] LABS: C-REACTIVE PROTEIN QUANT 17.4 mg/dL (0-0.5)
--- NOTE | 2021-05-07 11:30 | NUR ---
Notes- Repositioned, pain is controlled, family at bedside. Enc to call for help or pain medications is needed.
--- NOTE | 2021-05-07 12:29 | NUR ---
ROUNDS SEEN BY DR. Adriana SNOWDEN, COVERING FOR DR. MON. MD ORDERED TO DISCONTINUE AMIODARONE DRIP AFTER BAG FINISHED AND THE ORAL AND TO START PATIENT WITH COREG.
[2021-05-07 12:57] LABS: ERYTHROCYTE SEDIMENTATION RATE 78 MM/HR (0-20)
--- NOTE | 2021-05-07 13:55 | NUR ---
Notes- Amiodarone bag finished, discontinue as ordered.
--- NOTE | 2021-05-07 14:16 | NUR ---
notes- Pt refused doppler scan on both lower extremities.
--- NOTE | 2021-05-07 14:30 | NUR ---
Spoke to dr. mireles and made aware of platelets results, MD order to call infectious doctor for possible antibiotics change.
--- NOTE | 2021-05-07 15:04 | NUR ---
Paged Dr. Post, waiting for Md to call back.
--- NOTE | 2021-05-07 15:19 | NUR ---
MEGAN SNOWDEN FOR ORDERS USED PAGER NUMBER PROVIDED Addendum: 05/07/21 at 1521 by Armando Luo WI/ CHARTING WAS DONE ON WRONG PATIENT
--- NOTE | 2021-05-07 18:30 | NUR ---
Closing notes Awake, family at bedside talking with Dr. Post at bedside. No distress
--- NOTE | 2021-05-07 20:03 | NUR ---
PAGED DR. WEEKS [phone] SPOKE WITH SARABJIT
[2021-05-07] MEDS: CARVEDILOL 6.25 MG TABLET (COREG) PO SCH (21:00)
[2021-05-08] VITALS (19 sets, daily range): BP systolic 98–149
[2021-05-08 06:45] LABS: INR 1.1 (0.8-1.2); PROTHROMBIN TIME 11.8 SECS (9.5-12.5)
[2021-05-08 06:50] LABS: BASOPHILS % (AUTO) 0.1 % (0.0-2.0); EOSINOPHILS # (AUTO) 0.1 K/uL (0.0-0.4); EOSINOPHILS % (AUTO) 1.1 % (0.0-4.0); HEMOGLOBIN 9.8 g/dL (12.0-16.0); LYMPHOCYTES # (AUTO) 0.6 K/uL (1.0-5.5); LYMPHOCYTES % (AUTO) 4.8 % (20.5-51.5); MEAN CORPUSCULAR HEMOGLOBIN 31 pg (27-31); MEAN CORPUSCULAR HGB CONC 33 % (32-36); MEAN CORPUSCULAR VOLUME 95 fL (79.0-98.0); MONOCYTES # (AUTO) 1.1 K/uL (0.0-1.0); MONOCYTES % (AUTO) 8.4 % (1.7-9.3); NEUTROPHILS # (AUTO) 11.1 K/uL (1.8-7.7); NEUTROPHILS % (AUTO) 85.6 % (40.0-70.0); PLATELET COUNT (AUTO) 54 K/uL (130-430); RED BLOOD CELL COUNT(AUTO) 3.17 MIL/uL (4.2-6.2); WHITE BLOOD COUNT (AUTO) 12.9 K/uL (4.8-10.8)
[2021-05-08 07:07] LABS: ANION GAP 11 (5-15); CALCIUM 8.2 mg/dL (8.4-11.0); CHLORIDE 93 mmol/L (98-107); CREATININE 4.12 mg/dL (0.55-1.30); GLUCOSE 88 mg/dL (70-99); PHOSPHORUS 3.1 mg/dL (2.7-4.5); POTASSIUM 3.7 mmol/L (3.5-5.1); SODIUM SERUM 127 mmol/L (136-145); UREA NITROGEN, BLOOD 32 mg/dL (8-21)
[2021-05-08] MEDS: LEVOTHYROXINE SODIUM 0.025 MG TABLET PO SCH (08:36)
[2021-05-08] MEDS: NEPHROVITE, (FOLIC ACID/VITAMIN B COMP W-C 1 TAB) PO SCH (08:36)
[2021-05-08] MEDS: HYDROcodone/ACETAMIN 5-325 MG TAB (NORCO/ VICODIN) PO PRN (08:36)
[2021-05-08] MEDS: PANTOPRAZOLE SODIUM 40 MG TAB PO SCH (08:36)
[2021-05-08] MEDS: CARVEDILOL 6.25 MG TABLET (COREG) PO SCH ×2 (08:37→22:13)
[2021-05-08] MEDS: hydrALAZINE HCL 25 MG TABLET PO SCH ×2 (08:37→22:12)
[2021-05-08] MEDS: ALPRAZolam 0.25 MG TABLET PO SCH ×2 (08:38→22:13)
[2021-05-08] MEDS: GABAPENTIN 100 MG CAPSULE PO SCH (08:38)
[2021-05-08 09:06] LABS: IMMUNOGLOBULIN G, SERUM 758 mg/dL (586-1602); IMMUNOGLOBULIN M, SERUM 33 mg/dL (26-217)
[2021-05-08] MEDS: D5/0.45 NS 1,000 ML IV SCH ×2 (13:35→18:15)
--- NOTE | 2021-05-08 18:58 | NUR ---
pt condition remained stable throughout the shift did have doppler studies of lower extremities maryann well was med time one with vicodin ortho doctor in to see pt no further c/o noted also fibringen was 734 dr webber notified no new orders noted
--- NOTE | 2021-05-08 19:25 | NUR ---
received report from rn. pt in bed resting. pt aox2 and able to make some needs known. rr even and unlabored on 2l nc. pt co R knee pain. Pt to have possible procedure in am.
--- NOTE | 2021-05-08 20:30 | NUR ---
pt admitted to [facility]. Pt in bed resting. Family at bedside. Family updated on plan of care. pt has av shunt in Rehan arm. Picc in Rachel. pt cleaned and repositioned. pt has optifoam on coccxys. pt refused dressing to be changed.
--- NOTE | 2021-05-08 22:05 | NUR ---
Point of contact Dianne Bush [phone] Addendum: 05/08/21 at 2238 by Linden Boland RN Cell phone: [phone]
[2021-05-09] VITALS: BP_SYST 116
[2021-05-09] MEDS: D5/0.45 NS 1,000 ML IV SCH (05:04)
--- NOTE | 2021-05-09 06:00 | NUR ---
PT SLEPT THROUGH NIGHT. PT FAMILY UPDATED ON PT CONDITION AND PLAN ON CARE. PT FAMILY STATED SHE WAS HAVING PROCEDURE ON KNEE. NO ORDERS FOUND ABOUT THIS OPERATION. WILL ENDORSE CARE TO DAY NURSE/
--- NOTE | 2021-05-09 08:00 | NUR ---
PATIENT IN BED, NO S/S OF DISTRESS, MELBA PICC LINE INTACT PATENT WITH BLOOD RETURN AND FLUSHES WELL, A/OX4, RIGHT KNEE SWOLLEN, 2L NASAL CANULA O2 SAT >95%, R ARM AV SHUNT, DIALYSIS SCHEDULED FOR TODAY, DAUGHTER PATSY AT BEDSIDE ALL QUESTIONS ANSWERED AND EDUCATED ON PLAN OF CARE FOR THE DAY.
[2021-05-09 08:37] LABS: BASOPHILS % (AUTO) 0.3 % (0.0-2.0); EOSINOPHILS # (AUTO) 0.2 K/uL (0.0-0.4); EOSINOPHILS % (AUTO) 1.1 % (0.0-4.0); HEMATOCRIT 27.9 % (36-48); HEMOGLOBIN 9.4 g/dL (12.0-16.0); LYMPHOCYTES # (AUTO) 0.4 K/uL (1.0-5.5); LYMPHOCYTES % (AUTO) 2.7 % (20.5-51.5); MEAN CORPUSCULAR HEMOGLOBIN 32 pg (27-31); MEAN CORPUSCULAR HGB CONC 34 % (32-36); MEAN CORPUSCULAR VOLUME 94 fL (79.0-98.0); MONOCYTES # (AUTO) 0.8 K/uL (0.0-1.0); MONOCYTES % (AUTO) 5.7 % (1.7-9.3); NEUTROPHILS % (AUTO) 90.2 % (40.0-70.0); PLATELET COUNT (AUTO) 72 K/uL (130-430); RED BLOOD CELL COUNT(AUTO) 2.98 MIL/uL (4.2-6.2); RED CELL DISTRIBUTION WIDTH 14.5 % (9.0-15.0); WHITE BLOOD COUNT (AUTO) 14.5 K/uL (4.8-10.8)
[2021-05-09] MEDS: GABAPENTIN 100 MG CAPSULE PO SCH (09:00)
[2021-05-09] MEDS: ALPRAZolam 0.25 MG TABLET PO SCH ×2 (09:00→21:06)
[2021-05-09 09:09] LABS: ALANINE AMINOTRANSFERASE 13 U/L (12-78); ALBUMIN 1.5 g/dL (3.4-4.8); ANION GAP 10 (5-15); ASPARTATE AMINOTRANSFERASE 16 U/L (10-37); CALCIUM 7.9 mg/dL (8.4-11.0); CHLORIDE 91 mmol/L (98-107); GLUCOSE 89 mg/dL (70-99); PHOSPHORUS 3.9 mg/dL (2.7-4.5); POTASSIUM 3.5 mmol/L (3.5-5.1); SODIUM SERUM 123 mmol/L (136-145); TOTAL BILIRUBIN 0.3 mg/dL (0.0-1.0); UREA NITROGEN, BLOOD 38 mg/dL (8-21)
[2021-05-09] MEDS: NEPHROVITE, (FOLIC ACID/VITAMIN B COMP W-C 1 TAB) PO SCH (09:16)
[2021-05-09] MEDS: hydrALAZINE HCL 25 MG TABLET PO SCH ×2 (09:16→21:05)
[2021-05-09] MEDS: PANTOPRAZOLE SODIUM 40 MG TAB PO SCH (09:17)
[2021-05-09] MEDS: CARVEDILOL 6.25 MG TABLET (COREG) PO SCH ×2 (09:17→21:05)
[2021-05-09] MEDS: LEVOTHYROXINE SODIUM 0.025 MG TABLET PO SCH (09:17)
--- NOTE | 2021-05-09 09:57 | NUR ---
nuclear medicine injected by dr mahoney into picc line, daughter aura at bedside was educated and answered all questions, patient tolerated well, dr mahoney suggests patient drink 2 cups of water between now and scan at 1400, in addition states to give norco for pain at [phone] and that he will be back to [facility] for the scan between 4926-8049.
--- NOTE | 2021-05-09 10:00 | NUR ---
PATIENT WAS GIVEN HER MORNING MEDICATIONS, DAUGHTER AND HER STATE THAT SHE DOES NOT TAKE THE XANAX OR NEURONTIN IN THE MORNING SO REFUSED THOSE MEDS. ALL OTHER MEDICATIONS WERE GIVEN ONE AT A TIME WITH WATER. PATIENT TOLERATED WELL.
[2021-05-09 10:16] LABS: C-REACTIVE PROTEIN QUANT 13.3 mg/dL (0-0.5)
[2021-05-09] MEDS: D5NS 1,000 ML IV SCH ×2 (10:45→20:58)
[2021-05-09 10:58] LABS: ERYTHROCYTE SEDIMENTATION RATE 83 MM/HR (0-20)
[2021-05-09 11:35] VITALS: BP_SYST 102
--- NOTE | 2021-05-09 13:57 | NUR ---
Discharge Planning: DCP faxed pt referral to [facility], [facility], [facility]. DCP to follow up.
[2021-05-09] MEDS: HYDROcodone/ACETAMIN 5-325 MG TAB (NORCO/ VICODIN) PO PRN (14:11)
--- NOTE | 2021-05-09 14:36 | NUR ---
patient taken to nuclear medicine scare with dr mahoney, tolerated transfer well,pre medicated for pain, daughter at bedside educated and stated she will come back later to see her.
[2021-05-09 15:07] LABS: A/G RATIO 0.9 (0.7-1.7); ALPHA-1-GLOBULIN 0.4 g/dL (0.0-0.4); ALPHA-2-GLOBULIN 0.6 g/dL (0.4-1.0); BETA GLOBULIN 0.7 g/dL (0.7-1.3); GAMMA GLOBULIN 0.6 g/dL (0.4-1.8); GLOBULIN, TOTAL 2.3 g/dL (2.2-3.9); M-SPIKE Not Observed g/dL (Not Observed)
--- NOTE | 2021-05-09 16:04 | NUR ---
patient started on dialysis, will start rocephin once she is done being dialyzed
[2021-05-09 16:18] VITALS: BP_SYST 111
--- NOTE | 2021-05-09 16:23 | NUR ---
ST EVALUATION COMPLETED. ST TX NOT INDICATED AT THIS TIME. RECOMMEND CURRENT DIET AND 1:1 ASSISTANCE FOR FEEDING AND MAX ENCOURAGEMENT TO CONSUME ADEQUATE INTAKE.
--- NOTE | 2021-05-09 17:24 | NUR ---
Nutrition F/U RD reviewed pt's current EMR record including diet Hx, physician notes, nursing notes, pertinent labs/meds/procedures, care trends, and care activity. 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 rounded to pt's bedside earlier today, however, pt was not present and likely in nuclear medicine for bone scan. Per EMR review, pt has an active D/C order for SNF (IV Abx/rehab); pt refused lunch and had a BM today; on 2 L O2 via NC; PO intakes have been negligible x2 meals since last RD visit; last BM x3 05/09; Milton scale: 13, no PIs noted; ST swallow eval order in place. Pt is not meeting nutritional needs. Pertinent Medications: synthroid, nephrovite, D5%1/2NS at 100 ml/hr (408 kcal/day) Pertinent Labs: WBC 14.5 H, Na 123 L, BUN 38 H, CRE 5.2 H, BG 89 WNL, CRP 13.3 H Height (Feet) 5 feet Height (Inches) 2.00 inches Weight (Pounds) 110 pounds -- stable since 05/05 Weight (Calculated Kilograms) 49.064525 kilograms Patient Weight 49.895 kg Body Mass Index 20.12 kg/m2 Usual Weight 110 lbs %UBW 100 %IBW 100 [place]/Adjusted Body Weight IBW: 110#/50 kg Recent Weight Change No Weight Status Underweight Gastrointestinal Symptoms Diarrhea Food Allergies No Estimated Energy Expenditure (kcals/day) 4514-2961 kcal/day (30-35 kcal/kg CBW d/t sepsis) Estimated Protein Required (g/day) 60-75 gm/day (1.2-1.5 gm/kg CBW d/t ESRD/HD, sepsis) Estimated Fluid Required (l/day) Per physician d/t ESRD Problem/Etiology/Signs/Symptoms Suboptimal nutritional intakes related to metabolic demands as evidenced by negligible PO intake records. *ongoing Expected Outcomes/Goals - Monitor appetite and PO intakes w/ goal of pt meeting at least 50% of estimated nutritional needs, labs trending WNL, normal GI function, and skin integrity/wt maintenance Dietitian Recommendations * Continue renal, finely chopped diet w/ Nepro TID (ONS provides 1260 kcal/day, 57 gm protein/day) * Encourage increase PO intakes * Adhere to pt food preferences * Consider appetite stimulant Follow Up High Risk: F/U in 2-3 days
--- NOTE | 2021-05-09 17:34 | NUR ---
Dietitian Recommendations * Continue renal, finely chopped diet w/ Nepro TID (ONS provides 1260 kcal/day, 57 gm protein/day) * Encourage increase PO intakes * Adhere to pt food preferences * Consider appetite stimulant LP, RD Please refer to Nutrition F/U for details.
--- NOTE | 2021-05-09 18:32 | NUR ---
PATIENT STILL ON DIALYSIS, ASKED DIALYSIS NURSE HOW MUCH LONGER THE PATIENT WILL BE IN DIALYSIS AND SHE STATED IT WILL BE 30 MORE MINUTES, WAS UNABLE TO GIVE DOSE OF ROCEPHIN IV AT SCHEDULED TIME BECAUSE PATIENT RECEIVING DIALYSIS, WILL ENDORSE TO FIELD SERVICE SUPERVISOR TO GIVE ROCEPHIN.
--- NOTE | 2021-05-09 19:20 | NUR ---
INITIAL NOTES: SEEN PT POST HEMODIALYSIS, AWAKE,ALERT ORIENT TO NAME AND BIRTHDAY, STABLE VITALS SIGN- RECORDED, HD OUTPUT 1LITER. MID LINE TO LEFT UPPER ARM-DOUBLE LUMEN SALINE LOCK, EXPLAIN PLAN OF CARE TO PT AND DAUGHTER AT BEDSIDE. THEY VERBALIZED UNDERSTANDING. NEEDS ATTENDED, CALL LIGHT IN REACH. WILL CONTINUE TO MONITOR.
[2021-05-09 19:29] VITALS: BP_SYST 128
--- NOTE | 2021-05-10 | NUR ---
SLEEPING, NOT DISTRESS, FAMILY AT BEDSIDE.
[2021-05-10 00:24] VITALS: BP_SYST 110
[2021-05-10] MEDS: D5NS 1,000 ML IV SCH ×2 (05:24→16:36)
--- NOTE | 2021-05-10 06:31 | NUR ---
CLOSING: PT IS IN BED, SLEEPING. NO PAIN. NOT DISTRESS. IVF INFUSING WELL. SAFETY PRECAUTION IN PLACE. STABLE. NEEDS ATTENDED. WILL CONTINUE TO MONITOR UNTIL SBAR REPORTING GIVEN TO AM RN.
[2021-05-10 06:42] LABS: BASOPHILS % (AUTO) 0.2 % (0.0-2.0); EOSINOPHILS # (AUTO) 0.1 K/uL (0.0-0.4); EOSINOPHILS % (AUTO) 0.7 % (0.0-4.0); HEMATOCRIT 27.3 % (36-48); HEMOGLOBIN 9.1 g/dL (12.0-16.0); LYMPHOCYTES # (AUTO) 0.5 K/uL (1.0-5.5); LYMPHOCYTES % (AUTO) 3.3 % (20.5-51.5); MEAN CORPUSCULAR HEMOGLOBIN 31 pg (27-31); MEAN CORPUSCULAR HGB CONC 34 % (32-36); MEAN CORPUSCULAR VOLUME 93 fL (79.0-98.0); MONOCYTES % (AUTO) 6.8 % (1.7-9.3); NEUTROPHILS # (AUTO) 12.5 K/uL (1.8-7.7); PLATELET COUNT (AUTO) 105 K/uL (130-430); RED BLOOD CELL COUNT(AUTO) 2.92 MIL/uL (4.2-6.2); RED CELL DISTRIBUTION WIDTH 14.6 % (9.0-15.0)
[2021-05-10 06:50] LABS: ALANINE AMINOTRANSFERASE 12 U/L (12-78); ALBUMIN 1.6 g/dL (3.4-4.8); ANION GAP 7 (5-15); ASPARTATE AMINOTRANSFERASE 19 U/L (10-37); CALCIUM 7.4 mg/dL (8.4-11.0); CHLORIDE 97 mmol/L (98-107); CREATININE 3.23 mg/dL (0.55-1.30); GLUCOSE 90 mg/dL (70-99); PHOSPHORUS 3.2 mg/dL (2.7-4.5); POTASSIUM 3.5 mmol/L (3.5-5.1); SODIUM SERUM 130 mmol/L (136-145); TOTAL BILIRUBIN 0.1 mg/dL (0.0-1.0); UREA NITROGEN, BLOOD 17 mg/dL (8-21)
[2021-05-10 07:59] LABS: C-REACTIVE PROTEIN QUANT 16.6 mg/dL (0-0.5)
[2021-05-10 08:00] VITALS: BP_SYST 129
--- NOTE | 2021-05-10 08:00 | NUR ---
PATIENT IN BED, NO S/S OF DISTRESS, MELBA PICC LINE INTACT PATENT WITH BLOOD RETURN AND FLUSHES WELL, A/OX2, RIGHT KNEE SWOLLEN, 2L NASAL CANULA O2 SAT >95%, R ARM AV SHUNT, RECEIVED DIALYSIS LAST NIGHT, DAUGHTER PATSY AT BEDSIDE ALL QUESTIONS ANSWERED AND EDUCATED ON PLAN OF CARE FOR THE DAY.
[2021-05-10] MEDS: LEVOTHYROXINE SODIUM 0.025 MG TABLET PO SCH (08:36)
[2021-05-10] MEDS: GABAPENTIN 100 MG CAPSULE PO SCH (08:36)
[2021-05-10] MEDS: ALPRAZolam 0.25 MG TABLET PO SCH ×2 (08:36→21:00)
[2021-05-10] MEDS: hydrALAZINE HCL 25 MG TABLET PO SCH ×2 (08:36→21:06)
[2021-05-10] MEDS: CARVEDILOL 6.25 MG TABLET (COREG) PO SCH ×2 (08:36→21:13)
[2021-05-10] MEDS: PANTOPRAZOLE SODIUM 40 MG TAB PO SCH (08:36)
[2021-05-10] MEDS: NEPHROVITE, (FOLIC ACID/VITAMIN B COMP W-C 1 TAB) PO SCH (08:36)
[2021-05-10] MEDS: ACETAMINOPHEN 325 MG TABLET PO PRN (08:54)
--- NOTE | 2021-05-10 09:00 | NUR ---
PATIENT PLACED ON BEDPAN PER PATIENT AND DAUGHTER REQUEST, CAREFULLY TURNED PATIENT TO ENSURE RIGHT KNEE WAS PROTECTED, GAVE FULL BED BATH AFTER PATIENT FINISHED AND ASSESSED FOR ANY SKIN DAMAGE OR PRESSURE INJURIES, PATIENT IS FREE OF INJURY AND TOLERATED WELL, BED IN LOWEST LOCKED POSITION, BED ALARM ON, ALL QUESTIONS ANSWERED FROM DAUGHTER PATSY, STATES THEY HAVE NO REQUESTS FROM THE NURSE AT THIS TIME.
[2021-05-10 09:36] LABS: ERYTHROCYTE SEDIMENTATION RATE 87 MM/HR (0-20)
--- NOTE | 2021-05-10 10:11 | NUR ---
Discharge Planning: DCP followed up with pt referral to: [facility]-DCP spoke to admissions [phone] more information what ABX?, would like PT notes, dialysis facility and chairtime? [facility]- ([phone]) not taking dialysis patients at this time. [facility]-No female beds at this time [facility].- dale Moseley will have DON review. DCP to follow up Addendum: 05/10/21 at 1023 by Milly Lopez DP DCP followed up with pt referral to: DCP faxed [facility]-DCP spoke to admissions F [phone] P [phone] more information what ABX per LETA tOto , would like PT notes-no pt , dialysis facility and chair time- [facility] [phone] MWF 9:00am. Addendum: 05/10/21 at 1227 by Milly Lopez DP ROBERTA received a from Mony from [facility] (P [phone]) confirming how pt will transport to dialysis, by norbert. ROBERTA followed up with Alondra at [facility]-ROBERTA spoke to admissions [phone] made her aware pt will go gurney as well. Once dialysis transport is set up Alondra will call with a room.
--- NOTE | 2021-05-10 10:33 | NUR ---
HIGH ALERT NOTE: Called Dr. WEEKS back at identified within the medical roster to verify physician authenticity. DR WEEKS ORDERED 1X DOSE OF 1MG IVP MORPHINE SULFATE
[2021-05-10] MEDS ORDERED: MORPHINE 2 MG/ML INJ. SYRINGE IVP ONE (11:00)
--- NOTE | 2021-05-10 11:30 | NUR ---
PATIENT RIGHT KNEE ASPIRATED BY DR WEEKS, DR WEEKS THOROUGHLY EXPLAINED THE PROCEDURE AND FUTURE PLAN OF CARE FOR THE KNEE, ORDERED TO HAVE PATIENT PREMEDICATED WITH 1MG MORPHINE IVP, MORPHINE PROVIDED TO PATIENT TOLERATED WELL, ASPIRATION PERFORMED WITH PATIENT IN BED AND IN ROOM, SAMPLE OF ASPIRATION TAKEN TO LAB FOR CULTURE AND CELL COUNT AND GRAM STAIN, SOME DRAINAGE NOTED AFTER FINISHING THE ASPIRATION SO SIT WAS CLEANED AND 4X4 GAUZE WAS APPLIED WITH TAPE, PATIENT AND DAUGHTER PATSY REFUSED TO HAVE DIRTY PILLOW UNDER THE PATIENT CHANGED DUE TO PATIENT FEAR OF INCREASED PAIN WHILE CHANGING THE PILLOW FOR A CLEAN ONE, EXPLAINED TO DAUGHTER WILL COME BACK IN AN HOUR TO REASSESS FOR PAIN AND IF WILL ALLOW TO HAVE THE PILLOW CHANGED AND LEG CLEANED, PATIENT AND FAMILY AGREE TO PLAN OF CARE.
[2021-05-10 12:00] VITALS: BP_SYST 101
--- NOTE | 2021-05-10 12:30 | NUR ---
PATIENT STATES SHE HAS PAIN IN THE RIGHT KNEE AND OFFERED TO PLACE THE LIDOCAINE PATCH BUT PATIENT AND DAUGHTER STATED THEY WANTED TO WAIT UNTIL 1800 TO HAVE THE PATCH PLACED.
--- NOTE | 2021-05-10 12:30 | NUR ---
REASSESSED PATIENT PAIN LEVEL TO DETERMINE IF WILL ALLOW TO CHANGE PILLOW OUT AND CLEAN LEG, PATIENT AND FAMILY AGREED TO ALLOW THE CHANGE, WITH ASSISTANCE OF COPY COORDINATOR TO STABILIZE THE LEG, THE PILLOW WAS CHANGED FOR A CLEAN ONE AND LEG WAS CLEANED, PATIENT TOLERATED WELL, PATIENT AND FAMILY STATE THAT THEY HAVE NO NEEDS AT THIS TIME.
--- NOTE | 2021-05-10 12:54 | NUR ---
Spoke to patient's daughter,Dianne, she had concerns about her mother's care. She asked about who another orthopedic MD was not caring for her mother. I explained Dr. Rincon was the only orthopedic MD on staff at [facility] who was willing to care for her mother. She wanted to know why her mother had not been moved to [facility]. I explained her mother was out of area for her medical group, [facility] is responsible for her mother's care at [facility], and there is no need for her mother to be moved to another hospital at this time. She requested a written copy of her mother's orthopedic plan of care. I explained to her she will need to request that from the orthopedic MD. She requested written copies of the policies and procedures for the nursing care of her mother. I explained she will need to discuss that request with the nursing administration of the hospital.
--- NOTE | 2021-05-10 16:50 | NUR ---
patient daughter aura filled out release of medical information form and requested a copy of the completed form, stated that will ask if can provide a copy since the concern is that the patients medical record number is on the form, asked the charge nurse Cecilia and she stated to cover the entire corner with the patient name and medical numbers and make a copy and provide to the patient, did such.
[2021-05-10] MEDS: LIDOCAINE PATCH 5% 1 EA TP PRN (18:47)
--- NOTE | 2021-05-10 19:04 | NUR ---
LIDOCAINE PATCHES PLACED ABOVE THE KNEE PER ORDERED BY DR WEEKS, LABELED THE PATCHES, DAUGHTER AT BEDSIDE AND EDUCATED ON USE AND TO BE REMOVED BY NURSE IN UNDER 12HRS, DISCUSSED PLAN OF CARE AND ANSWERED ALL QUESTIONS, ENDORSED CONTINUATION OF CARE TO EMPLOYEE ADVISER.
--- NOTE | 2021-05-10 19:20 | NUR ---
CHANGE OF SHIFT; endorsed by day shift. no distress. pt. family at bedside. on fall risk. for hemodialysis tomorrow. AV shunt on rt. arm.
--- NOTE | 2021-05-10 20:10 | NUR ---
NOTES: DR. Post here, seen pt. and talked to pt. daughter. discussed on pt. plan with orders. Addendum: 05/11/21 at 0015 by Karina Suggs RN late entry. PICC line on left upper arm IVF will be dc per order. rt. knee swollen, S/P aspiration per Dr. Rincon, Lidocaine patch above rt. knee.
[2021-05-10 20:45] VITALS: BP_SYST 128
--- NOTE | 2021-05-10 22:30 | NUR ---
NOTES: Xanax not given , pt. and family does not want it given but now cannot decide if they want it or not. pulled out med from pyxis but now decide not to have it per pt. daughter.
--- NOTE | 2021-05-10 23:45 | NUR ---
NOTES: pt. called and wants orange juicw and given. daughter not in the room. on fall risk precaution, bed alarm on.
--- NOTE | 2021-05-11 00:04 | NUR ---
NOTES: pt. dozing on and off, saying she cant sleep. repositioned on her side.
[2021-05-11 00:37] VITALS: BP_SYST 118
--- NOTE | 2021-05-11 02:00 | NUR ---
NOTES: made rounds and pt. sleeping. continue to monitor.
--- NOTE | 2021-05-11 04:40 | NUR ---
NOTES: condition observed. pt. been seeping.
--- NOTE | 2021-05-11 05:00 | NUR ---
NOTES: pt. pulled out her monitor cable and removed her nasal cannula. getting confused, saying she is going home and does not want to be touch or turn. pt. informed thast she needs to be fixed and clean, had a bowel movement. repositioned and turn to sides. IV lock. off O2 fr nw, no shortness of breath. pt. being stubborn. reoriented. kept warm with blanket. salmeron intact.
--- NOTE | 2021-05-11 06:45 | NUR ---
CLOSING NOTES; pt. more calm. slab depiler operator at bedside for blood draw. pt. daughter Mara called and updated on pt. status. another daughter will come today. condition observed. schedule for hemodialysis. IV site lock, dc IVF per md. on fall risk, bed alarm on. for further care and assistance. both legs elevated. will endorse to incoming shift.
[2021-05-11 06:50] LABS: BASOPHILS # (AUTO) 0.1 K/uL (0.0-0.2); BASOPHILS % (AUTO) 0.5 % (0.0-2.0); EOSINOPHILS # (AUTO) 0.1 K/uL (0.0-0.4); HEMOGLOBIN 10.3 g/dL (12.0-16.0); LYMPHOCYTES # (AUTO) 0.4 K/uL (1.0-5.5); LYMPHOCYTES % (AUTO) 2.9 % (20.5-51.5); MEAN CORPUSCULAR HEMOGLOBIN 31 pg (27-31); MEAN CORPUSCULAR HGB CONC 33 % (32-36); MEAN CORPUSCULAR VOLUME 94 fL (79.0-98.0); MONOCYTES % (AUTO) 6.8 % (1.7-9.3); NEUTROPHILS # (AUTO) 13.7 K/uL (1.8-7.7); NEUTROPHILS % (AUTO) 88.8 % (40.0-70.0); PLATELET COUNT (AUTO) 159 K/uL (130-430); RED CELL DISTRIBUTION WIDTH 14.9 % (9.0-15.0); WHITE BLOOD COUNT (AUTO) 15.4 K/uL (4.8-10.8)
[2021-05-11 07:08] LABS: ALANINE AMINOTRANSFERASE 11 U/L (12-78); ALBUMIN 1.5 g/dL (3.4-4.8); ANION GAP 11 (5-15); ASPARTATE AMINOTRANSFERASE 26 U/L (10-37); CALCIUM 7.8 mg/dL (8.4-11.0); CHLORIDE 98 mmol/L (98-107); CREATININE 4.39 mg/dL (0.55-1.30); GLUCOSE 76 mg/dL (70-99); PHOSPHORUS 4.1 mg/dL (2.7-4.5); POTASSIUM 3.7 mmol/L (3.5-5.1); SODIUM SERUM 131 mmol/L (136-145); TOTAL BILIRUBIN 0.1 mg/dL (0.0-1.0); UREA NITROGEN, BLOOD 23 mg/dL (8-21)
--- NOTE | 2021-05-11 07:35 | NUR ---
Physical Therapy order has been received and the chart reviewed. Requested RN to ask Orthopedist weight bearing precautions for the right knee. Plan: Await RN's/Ortho response.
[2021-05-11 08:10] LABS: ERYTHROCYTE SEDIMENTATION RATE 97 MM/HR (0-20)
[2021-05-11] MEDS: GABAPENTIN 100 MG CAPSULE PO SCH (09:00)
[2021-05-11] MEDS: hydrALAZINE HCL 25 MG TABLET PO SCH ×2 (09:00→20:42)
[2021-05-11] MEDS: LEVOTHYROXINE SODIUM 0.025 MG TABLET PO SCH (09:00)
[2021-05-11] MEDS: ALPRAZolam 0.25 MG TABLET PO SCH ×2 (09:00→22:38)
[2021-05-11] MEDS: PANTOPRAZOLE SODIUM 40 MG TAB PO SCH (09:00)
[2021-05-11] MEDS: NEPHROVITE, (FOLIC ACID/VITAMIN B COMP W-C 1 TAB) PO SCH (09:00)
[2021-05-11] MEDS: CARVEDILOL 6.25 MG TABLET (COREG) PO SCH ×2 (09:10→21:00)
[2021-05-11] MEDS ORDERED: ALBUMIN HUMAN 25% 100 ML IV ONE (09:15)
--- NOTE | 2021-05-11 09:57 | NUR ---
Discharge Planning: DCP followed up with Alondra at [facility] [phone] will accept pt. Insurance will set up first week of dialysis transport, to [facility] in [facility] 9:00am P [phone].
--- NOTE | 2021-05-11 09:58 | NUR ---
Received a phone call from Lydia at [facility]-given transportation auth for [facility] ambulance if patient needs transportation #[id number].
--- NOTE | 2021-05-11 11:20 | NUR ---
Patient is having dialysis. Will have to attempt evaluation later or tomorrow morning. RN spoke with Dr. Rincon who is allowing WBAT on the RLE.
[2021-05-11 12:28] VITALS: BP_SYST 128
[2021-05-11 16:15] VITALS: BP_SYST 144
--- NOTE | 2021-05-11 16:17 | NUR ---
temperature 100.0. daughter at bedside. refuses cooling measures or tylenol. states that she does not want the temperature masked. requests to speak to Dr. Campoverde. Nurse to page him
[2021-05-11] MEDS: LIDOCAINE PATCH 5% 1 EA TP PRN (17:23)
--- NOTE | 2021-05-11 17:28 | NUR ---
while giving abx ivpb for the patient, complained of pain, but unable to tell where the pain she felt, very vague. Per daughter , mostly on her right upper thigh and lower legs, Lidocaine 5% , 2 patches applied
--- NOTE | 2021-05-11 19:30 | NUR ---
Opening note Received report from day shift. Pt is awake in bed with daughter at bedside. No s/s of respiratory distress. Breathing is even and unlabored. PICC line is intact and patent saline lock. Fall and safety precautions in place with bed in lowest position, bed alarm on, and call light within reach
[2021-05-11] MEDS: MEROPENEM 500 MG in NS 50 ML IV SCH (20:32)
--- NOTE | 2021-05-12 00:15 | NUR ---
Rounds Pt is sleeping. No s/s of acute distress. No needs at this time
[2021-05-12 01:05] VITALS: BP_SYST 136
--- NOTE | 2021-05-12 06:43 | NUR ---
Closing note Pt is awake resting in bed. No s/s of respiratory distress. Breathing is even and unlabored. PICC line is intact and patent saline lock. All needs met throughout shift. Fall and safety precautions in place with bed in lowest position, bed alarm on, and call light within reach
[2021-05-12 07:11] LABS: BASOPHILS # (AUTO) 0.2 K/uL (0.0-0.2); EOSINOPHILS # (AUTO) 0.1 K/uL (0.0-0.4); EOSINOPHILS % (AUTO) 0.8 % (0.0-4.0); HEMOGLOBIN 9.3 g/dL (12.0-16.0); LYMPHOCYTES # (AUTO) 0.8 K/uL (1.0-5.5); LYMPHOCYTES % (AUTO) 4.9 % (20.5-51.5); MEAN CORPUSCULAR HEMOGLOBIN 31 pg (27-31); MEAN CORPUSCULAR HGB CONC 33 % (32-36); MEAN CORPUSCULAR VOLUME 94 fL (79.0-98.0); MONOCYTES # (AUTO) 1.2 K/uL (0.0-1.0); MONOCYTES % (AUTO) 7.5 % (1.7-9.3); NEUTROPHILS # (AUTO) 13.6 K/uL (1.8-7.7); NEUTROPHILS % (AUTO) 85.8 % (40.0-70.0); PLATELET COUNT (AUTO) 222 K/uL (130-430); RED BLOOD CELL COUNT(AUTO) 2.98 MIL/uL (4.2-6.2); WHITE BLOOD COUNT (AUTO) 15.8 K/uL (4.8-10.8)
[2021-05-12 07:31] LABS: ANION GAP 11 (5-15); CALCIUM 8.9 mg/dL (8.4-11.0); CHLORIDE 98 mmol/L (98-107); CREATININE 3.53 mg/dL (0.55-1.30); GLUCOSE 72 mg/dL (70-99); PHOSPHORUS 3.2 mg/dL (2.7-4.5); POTASSIUM 3.9 mmol/L (3.5-5.1); SODIUM SERUM 136 mmol/L (136-145); UREA NITROGEN, BLOOD 15 mg/dL (8-21)
--- NOTE | 2021-05-12 08:00 | NUR ---
OPENING NOTES: PATIENT EATING BREAKFAST. HOB ELEVATED. BREATHING EVEN AND NON LABORED TO O2 AT 2 L/NC. DAUGHTER AT BED SIDE. BED LOCKED, ALARM ON AND IN LOWEST POSITION. FALL, SAFETY AND ASPIRATION MEASURES REINFORCED. CALL LIGHT WITHIN REACH.
[2021-05-12 08:02] VITALS: BP_SYST 129
[2021-05-12 08:45] LABS: C-REACTIVE PROTEIN QUANT 17.1 mg/dL (0-0.5)
[2021-05-12] MEDS: MEROPENEM 500 MG in NS 50 ML IV SCH ×2 (08:45→20:17)
[2021-05-12] MEDS: CARVEDILOL 6.25 MG TABLET (COREG) PO SCH ×2 (08:48→20:17)
[2021-05-12] MEDS: hydrALAZINE HCL 25 MG TABLET PO SCH ×2 (08:48→20:17)
[2021-05-12] MEDS: NEPHROVITE, (FOLIC ACID/VITAMIN B COMP W-C 1 TAB) PO SCH (08:48)
[2021-05-12] MEDS: LEVOTHYROXINE SODIUM 0.025 MG TABLET PO SCH (08:48)
[2021-05-12] MEDS: ACETAMINOPHEN 325 MG TABLET PO PRN (08:50)
[2021-05-12] MEDS: PANTOPRAZOLE SODIUM 40 MG TAB PO SCH (08:51)
[2021-05-12] MEDS: GABAPENTIN 100 MG CAPSULE PO SCH (09:00)
[2021-05-12] MEDS ORDERED: ENOXAPARIN SODIUM 30 MG/0.3 ML SYRINGE SUBCUT ONE (09:00)
[2021-05-12] MEDS: ALPRAZolam 0.25 MG TABLET PO SCH ×2 (09:00→22:41)
--- NOTE | 2021-05-12 09:00 | NUR ---
Spoke with daughter regarding Physical Therapy order. She is agreeable to have the patient attempt later. Patient is scheduled for a test this morning. Patient was asleep. Plan: Will attempt the evaluation later or tomorrow.
[2021-05-12 09:15] LABS: ERYTHROCYTE SEDIMENTATION RATE 80 MM/HR (0-20)
--- NOTE | 2021-05-12 09:15 | NUR ---
RN NOTES: MED PASSED DONE. DAUGHTER AT BEDSIDE. NO S/S OF ACUTE DISTRESS NOTED. DAUGHTER AND PATIENT REFUSED XANAX AND NEURONTIN. CALL LIGHT WITHIN REACH.
--- NOTE | 2021-05-12 11:00 | NUR ---
RN NOTES: PATIENT BROUGHT TO CT SCAN VIA HOSPITAL BED. PATIENT IN STABLE CONDITION.
[2021-05-12 12:32] VITALS: BP_SYST 130
[2021-05-12 16:32] VITALS: BP_SYST 136
--- NOTE | 2021-05-12 18:50 | NUR ---
CLOSING NOTES: PATIENT RESTING IN BED. BREATHING EVEN AND NON LABORED TO O2 AT 2 L/NC. BED LOCKED, ALARM ON AND IN LOWEST POSITION. FALL, SAFETY AND ASPIRATION MEASURES PROVIDED. CALL LIGHT WITHIN REACH.
--- NOTE | 2021-05-12 19:12 | NUR ---
OPENING NOTES PATIENT RESTING, FAMILY AT BEDSIDE, NO SIGNS OF ACUTE RESPIRATORY DISTRESS NOTED. CALL LIGHT WITHIN REACH, BED ALARM ON, BED AT LOWEST POSITION, BED LOCKED. FALL, RESPIRATORY, ASPIRATION, AND SAFETY PRECAUTIONS IN PLACE. DISCUSSED PLAN OF CARE WITH PATIENT AND FAMILY. WILL CONTINUE TO MONITOR.
[2021-05-12 20:00] VITALS: BP_SYST 136
--- NOTE | 2021-05-12 22:13 | NUR ---
SPOKE TO DR. SNOWDEN FOR RENEWING THE ORDER FOR XANAX THAT REACHED THE STOP TIME. NEW ORDERS RECEIVED TO CONTINUE. Addendum: 05/13/21 at 0531 by Linda Goodman RN CHANGE TIME TO [id number]
--- NOTE | 2021-05-12 22:28 | NUR ---
Paged Dr. Campoverde.
--- NOTE | 2021-05-12 22:30 | NUR ---
HIGH ALERT NOTE: Called Dr. SNOWDEN back at [phone] identified within the medical roster to verify physician authenticity.
[2021-05-12] MEDS: LIDOCAINE PATCH 5% 1 EA TP PRN (22:41)
[2021-05-13 01:09] VITALS: BP_SYST 108
--- NOTE | 2021-05-13 01:34 | NUR ---
PATIENT RESTING, NO SIGNS OF DISTRESS NOTED. WILL CONTINUE TO MONITOR.
--- NOTE | 2021-05-13 02:45 | NUR ---
SPOKE TO DAUGHTER JAVED ON THE PHONE OF PATIENT, PATIENT WAS FEELING CLAUSTROPHOBIC AND DID NOT WANT LEADS ON AND OXYGEN ON. EXPLAINED TO PATIENT OF OPTIONS OF PAIN MEDICATION AND TEACHING OF INDICATION OF TELEMONITOR AND OXYGEN. PATIENT NOW RESTING AFTER PRN PAIN MEDICATION PROVIDED. CALL LIGHT WITHIN REACH AND SAFETY PRECAUTIONS IN PLACE. WILL CONTINUE TO MONITOR.
[2021-05-13] MEDS: HYDROcodone/ACETAMIN 5-325 MG TAB (NORCO/ VICODIN) PO PRN ×2 (03:00→09:36)
[2021-05-13 03:08] VITALS: BP_SYST 130
--- NOTE | 2021-05-13 07:30 | NUR ---
CLOSING NOTES PATIENT RESTING, FAMILY AT BEDSIDE DECIDING IF TO PURSUE SURGERY, NO SIGNS OF ACUTE RESPIRATORY DISTRESS NOTED. CALL LIGHT WITHIN REACH, BED ALARM ON, BED AT LOWEST POSITION, BED LOCKED. FALL, RESPIRATORY, ASPIRATION, AND SAFETY PRECAUTIONS IN PLACE. BENJAMIN CATHETER IN PLACE, NO KINKS, NO LOOPS, BAG NOT TOUCHING THE FLOOR. AWAITING CALL BACK FROM DR. OCASIO, BLADDER SCAN DONE AND ONLY 250 ML CAN BE SCANNED WITH VERY MINIMAL URINE OUTPUT. ALL NEEDS MET THROUGHOUT SHIFT. ENDORSED CARE TO ONCOMING SHIFT THAT FAMILY HAS NOT SIGNED CONSENT AND HOUSE WORKER WAS UNABLE TO GET THE SCHEDULED LAB DRAW AND HAS BEEN ENDORSED. ENDORSED CARE TO ONCOMING SHIFT.
[2021-05-13 07:45] LABS: BASOPHILS % (AUTO) 0.4 % (0.0-2.0); EOSINOPHILS # (AUTO) 0.1 K/uL (0.0-0.4); HEMATOCRIT 27.8 % (36-48); HEMOGLOBIN 9.2 g/dL (12.0-16.0); LYMPHOCYTES # (AUTO) 0.6 K/uL (1.0-5.5); MEAN CORPUSCULAR HEMOGLOBIN 31 pg (27-31); MEAN CORPUSCULAR HGB CONC 33 % (32-36); MEAN CORPUSCULAR VOLUME 94 fL (79.0-98.0); MONOCYTES # (AUTO) 0.9 K/uL (0.0-1.0); MONOCYTES % (AUTO) 7.2 % (1.7-9.3); NEUTROPHILS # (AUTO) 10.4 K/uL (1.8-7.7); NEUTROPHILS % (AUTO) 86.4 % (40.0-70.0); PLATELET COUNT (AUTO) 196 K/uL (130-430); RED BLOOD CELL COUNT(AUTO) 2.96 MIL/uL (4.2-6.2); RED CELL DISTRIBUTION WIDTH 14.7 % (9.0-15.0)
[2021-05-13 07:57] LABS: ALANINE AMINOTRANSFERASE 15 U/L (12-78); ALBUMIN 1.9 g/dL (3.4-4.8); ANION GAP 11 (5-15); ASPARTATE AMINOTRANSFERASE 31 U/L (10-37); C-REACTIVE PROTEIN QUANT 14.8 mg/dL (0-0.5); CALCIUM 7.6 mg/dL (8.4-11.0); CHLORIDE 98 mmol/L (98-107); CREATININE 4.93 mg/dL (0.55-1.30); GLUCOSE 87 mg/dL (70-99); PHOSPHORUS 3.9 mg/dL (2.7-4.5); POTASSIUM 3.4 mmol/L (3.5-5.1); SODIUM SERUM 134 mmol/L (136-145); TOTAL BILIRUBIN 0.2 mg/dL (0.0-1.0); UREA NITROGEN, BLOOD 23 mg/dL (8-21)
[2021-05-13] MEDS: ALPRAZolam 0.25 MG TABLET PO SCH ×2 (09:00→22:29)
[2021-05-13] MEDS: GABAPENTIN 100 MG CAPSULE PO SCH (09:00)
[2021-05-13] MEDS: MEROPENEM 500 MG in NS 50 ML IV SCH ×2 (09:00→21:23)
[2021-05-13] MEDS: hydrALAZINE HCL 25 MG TABLET PO SCH ×2 (09:00→22:31)
[2021-05-13] MEDS: NEPHROVITE, (FOLIC ACID/VITAMIN B COMP W-C 1 TAB) PO SCH (09:29)
[2021-05-13] MEDS: PANTOPRAZOLE SODIUM 40 MG TAB PO SCH (09:30)
[2021-05-13] MEDS: LEVOTHYROXINE SODIUM 0.025 MG TABLET PO SCH (09:30)
[2021-05-13] MEDS: CARVEDILOL 6.25 MG TABLET (COREG) PO SCH ×2 (09:31→22:31)
[2021-05-13] MEDS: ENOXAPARIN SODIUM 30 MG/0.3 ML SYRINGE SUBCUT SCH (09:33)
[2021-05-13 11:11] LABS: ERYTHROCYTE SEDIMENTATION RATE 67 MM/HR (0-20)
--- NOTE | 2021-05-13 11:53 | NUR ---
When patient has a bed at [facility] auth by Lydia at [facility] is [id number].
[2021-05-13 12:00] VITALS: BP_SYST 148
[2021-05-13] MEDS: LIDOCAINE PATCH 5% 1 EA TP PRN (14:40)
[2021-05-13] MEDS ORDERED: HYDROmorphone 1 MG/ML INJ. CARTRIDGE IVP PRN (17:00)
--- NOTE | 2021-05-13 19:35 | NUR ---
ROUNDS PATIENT RESTING COMFORTABLY IN BED, VITALS STABLE, NO PAIN AT THIS TIME. ASSESSMENT DONE AND DOCUMENTED. SEE FLOWSHEET. NEEDS ATTENDED TO. SAFETY AND FALL MEASURES IN PLACED. BED IN LOW AND LOCKED POSITION. CALL LIGHT PLACED WITHIN REACH.
--- NOTE | 2021-05-13 20:48 | NUR ---
CALLED : DR WEEKS CALLED , NOTIFIED MD THAT FAMILY IS REQUESTING FOR SURGERY TIME, MD STATED IT WILL BE AT 9AM , MD ORDERED D51/2 NS AT 50 CC/HR AND NPO EXCEPT MEDICATIONS AFTER MIDNIGHT , CLARIFIED AGAIN THE ORDER NPO EXCEPT MEDICATION SINCE PT IS GOING FOR SURGERY , MS STATED "OK TO GIVE MEDICATIONS WITH SIPS OF WATER EVEN THOUGH PT WILL BE HAVING ANESTHESIA ".
[2021-05-14] MEDS: D5/0.45 NS 1,000 ML IV SCH (00:25)
[2021-05-14 00:38] VITALS: BP_SYST 107
--- NOTE | 2021-05-14 06:17 | NUR ---
CLOSING NOTES PATIENT AWAKE, NO COMPLAINTS AT THIS TIME, NPO EXCEPT MEDS ORDERED FOR HER SCHEDULED SURGERY TODAY. ALL NEEDS ATTENDED TO. SAFETY MEASURES MAINTAINED. CALL LIGHT PLACED WITHIN REACH.
[2021-05-14 07:33] LABS: BASOPHILS # (AUTO) 0.1 K/uL (0.0-0.2); BASOPHILS % (AUTO) 0.6 % (0.0-2.0); EOSINOPHILS # (AUTO) 0.1 K/uL (0.0-0.4); EOSINOPHILS % (AUTO) 0.9 % (0.0-4.0); HEMATOCRIT 29.8 % (36-48); HEMOGLOBIN 9.7 g/dL (12.0-16.0); LYMPHOCYTES # (AUTO) 0.6 K/uL (1.0-5.5); LYMPHOCYTES % (AUTO) 5.3 % (20.5-51.5); MEAN CORPUSCULAR HEMOGLOBIN 31 pg (27-31); MEAN CORPUSCULAR HGB CONC 33 % (32-36); MEAN CORPUSCULAR VOLUME 96 fL (79.0-98.0); MONOCYTES # (AUTO) 0.9 K/uL (0.0-1.0); MONOCYTES % (AUTO) 7.6 % (1.7-9.3); NEUTROPHILS # (AUTO) 10.5 K/uL (1.8-7.7); NEUTROPHILS % (AUTO) 85.6 % (40.0-70.0); PLATELET COUNT (AUTO) 225 K/uL (130-430); RED BLOOD CELL COUNT(AUTO) 3.09 MIL/uL (4.2-6.2); RED CELL DISTRIBUTION WIDTH 14.8 % (9.0-15.0); WHITE BLOOD COUNT (AUTO) 12.2 K/uL (4.8-10.8)
[2021-05-14 08:01] VITALS: BP_SYST 157
[2021-05-14 08:37] LABS: ERYTHROCYTE SEDIMENTATION RATE QNS MM/HR (0-20)
[2021-05-14] MEDS: MEROPENEM 500 MG in NS 50 ML IV SCH ×3 (09:00→22:24)
[2021-05-14] MEDS: GABAPENTIN 100 MG CAPSULE PO SCH (09:00)
[2021-05-14] MEDS: ALPRAZolam 0.25 MG TABLET PO SCH ×2 (09:00→22:25)
[2021-05-14] MEDS: ENOXAPARIN SODIUM 30 MG/0.3 ML SYRINGE SUBCUT SCH (09:00)
[2021-05-14] MEDS: NEPHROVITE, (FOLIC ACID/VITAMIN B COMP W-C 1 TAB) PO SCH (09:00)
[2021-05-14] MEDS: CARVEDILOL 6.25 MG TABLET (COREG) PO SCH ×2 (09:00→21:07)
[2021-05-14] MEDS: PANTOPRAZOLE SODIUM 40 MG TAB PO SCH (09:00)
[2021-05-14] MEDS: LEVOTHYROXINE SODIUM 0.025 MG TABLET PO SCH ×2 (09:00→13:23)
[2021-05-14] MEDS: hydrALAZINE HCL 25 MG TABLET PO SCH ×2 (09:00→21:06)
--- NOTE | 2021-05-14 09:15 | NUR ---
TO [facility]. TRANSPORTED PT TO SURGERY DEPT VIA BED, PATIENT ALERT, AND ACCOMPANIED BY HER DAUGHTER.
[2021-05-14] MEDS ORDERED: SEVOFLURANE 15 MIN GAS INH ONE (09:30)
[2021-05-14] MEDS ORDERED: BUPIVACAINE /EPINEPHRINE/PF 0.5% 30 ML VIAL INJ ONE (09:30)
[2021-05-14] MEDS ORDERED: LR 1,000 ML IV.SOLN IV ONE (09:30)
[2021-05-14] MEDS ORDERED: LIDOCAINE/EPI 1% 1:100000 20 ML VIAL INJ ONE (09:30)
[2021-05-14] MEDS ORDERED: MIDAZOLAM HCL 5 MG/5 ML VIAL IVP ONE (09:30)
[2021-05-14] MEDS ORDERED: PROPOFOL 200MG/ 20ML VIAL (DIPRIVAN) IV ONE (09:30)
[2021-05-14] MEDS ORDERED: CEFAZOLIN 1 GM IVPB PREMIX 50 ML IV ONE (09:30)
[2021-05-14] MEDS ORDERED: METOCLOPRAMIDE HCL 10 MG/2 ML VIAL IVP PRN (10:15)
[2021-05-14] MEDS ORDERED: ONDANSETRON HCL 4 MG/2 ML VIAL IVP PRN (10:15)
[2021-05-14] MEDS ORDERED: fentaNYL CITRATE/PF 100 MCG/2 ML AMP IVP PRN ×2 (10:15)
[2021-05-14 10:40] LABS: ALANINE AMINOTRANSFERASE 21 U/L (12-78); ALBUMIN 2.1 g/dL (3.4-4.8); ANION GAP 9 (5-15); CALCIUM 8.7 mg/dL (8.4-11.0); CHLORIDE 102 mmol/L (98-107); CREATININE 3.74 mg/dL (0.55-1.30); GLUCOSE 84 mg/dL (70-99); PHOSPHORUS 3.5 mg/dL (2.7-4.5); POTASSIUM 4.1 mmol/L (3.5-5.1); SODIUM SERUM 139 mmol/L (136-145); TOTAL BILIRUBIN 0.3 mg/dL (0.0-1.0); UREA NITROGEN, BLOOD 15 mg/dL (8-21)
[2021-05-14] MEDS ORDERED: hydrALAZINE HCL 20 MG/ML VIAL ONE (10:55)
[2021-05-14] MEDS ORDERED: fentaNYL CITRATE/PF 100 MCG/2 ML AMP ONE (10:56)
[2021-05-14] MEDS: hydrALAZINE HCL 20 MG/ML VIAL IVP PRN ×2 (11:03→11:19)
[2021-05-14 11:35] VITALS: BP_SYST 163
--- NOTE | 2021-05-14 11:35 | NUR ---
TO MST RECEIVED PT S/P RIGHT KNEE ARTHROSCOPY, BANDAGE AROUND RIGHT KNEE, ELEVATED ON PILLOWS, SCD ATTACHED TO LEGS, PT DROWSY, RESPONSIVE TO VERBAL STIMULI, CONTINUE TO MONITOR.
[2021-05-14 12:17] LABS: ASPARTATE AMINOTRANSFERASE 39 U/L (10-37)
--- NOTE | 2021-05-14 13:38 | NUR ---
MEDS PULLED OUT FROM THE PT'S BIN, PT'S DAUGHTER PATSY HILARIO STATED NOT TO GIVE IT NOW, SHE'S AFRAID THAT SHE WILL BE OFF THE TIME IN GETTING THE NEXT DOSE.
[2021-05-14] MEDS: cloNIDine HCL 0.1 MG TABLET PO PRN (14:04)
--- NOTE | 2021-05-14 14:04 | NUR ---
ELEVATED BP. CALLED AND SPOKE TO DR Carmen SNOWDEN, PT'S BP 180/68, 164/62, BP MEDS HAD NOT BEEN TAKEN YET THIS AM, DAUGHTER RESPONDED THAT WE SHOULD NOT GIVE IT TO HER, SHE WORRIES IF THE MEDS ARE TO BE TAKEN NOW THEN PT WILL NEED TO TAKE THE PILLS THE SAME HOUR FOR TOMORROW. NEW ORDERS RECEIVED FROM DR SNOWDEN. MEDICATED PT WITH CLONIDINE 0.1 MG TABLET.
[2021-05-14 15:30] VITALS: BP_SYST 157
[2021-05-14] MEDS: ACETAMINOPHEN 325 MG TABLET PO PRN (15:46)
--- NOTE | 2021-05-14 15:46 | NUR ---
ELEV TEMP TYLENOL 650 MG TABLET ADMINISTERED FOR TEMP 103. COOLING MEASURES APPLIED TO EXTREMITIES, COLD DRINKS PROVIDED FOR PT WITH HER PILLS.
--- NOTE | 2021-05-14 16:30 | NUR ---
BP. RECHECKED PT'S BP 126/99, HEART RATE 99, CONTINUE COOLING MEASURES.
--- NOTE | 2021-05-14 18:12 | NUR ---
Nutrition F/U RD reviewed pt's current EMR record including diet Hx, physician notes, nursing notes, pertinent labs/meds/procedures, care trends, and care activity. 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 RD spoke w/ family at bedside at length regarding renal diet and options for snacks. She stated that she and her sister are providing pt w/ outside foods prepared at home including baked yams, chicken, and mushrooms. RD offered snacks of yogurt, pudding, and peanut butter sandwich. Family agreed. Per EMR review, pt is s/p arthroscopic debridement and irrigation of R knee pt's appetite continues negligible x9 meal records since last RD visit 05/09. Pt continues at high risk for malnutrition. Pertinent Medications: synthroid Pertinent Labs: WBC 12.2 H, Na 139 WNL, BUN 15 WNL, CRE 3.74 H, CRP 15 H Height (Feet) 5 feet Height (Inches) 2.00 inches Weight (Pounds) 110 pounds -- stable since 05/05 Weight (Calculated Kilograms) 49.289644 kilograms Patient Weight 49.895 kg Body Mass Index 20.12 kg/m2 Usual Weight 110 lbs %UBW 100 %IBW 100 [place]/Adjusted Body Weight IBW: 110#/50 kg Recent Weight Change No Weight Status Underweight Gastrointestinal Symptoms Diarrhea Food Allergies No Estimated Energy Expenditure (kcals/day) 7587-0465 kcal/day (30-35 kcal/kg CBW d/t sepsis) Estimated Protein Required (g/day) 60-75 gm/day (1.2-1.5 gm/kg CBW d/t ESRD/HD, sepsis) Estimated Fluid Required (l/day) Per physician d/t ESRD Problem/Etiology/Signs/Symptoms Suboptimal nutritional intakes related to metabolic demands as evidenced by negligible PO intake records. *ongoing Expected Outcomes/Goals - Monitor appetite and PO intakes w/ goal of pt meeting at least 50% of estimated nutritional needs, labs trending WNL, normal GI function, and skin integrity/wt maintenance Dietitian Recommendations * Renal, finely chopped diet w/ Nepro TID (ONS provides 1260 kcal/day, 57 gm protein/day) * Snacks TID in-between meals * Encourage increase PO intakes * Adhere to pt food preferences * Consider appetite stimulant Follow Up High Risk: F/U in 2-3 days
--- NOTE | 2021-05-14 18:14 | NUR ---
SPOKE TO DR Carmen SNOWDEN REGARDING ELEV TEMP, ORDERS RECEIVED. BLOOD CULTURES TONIGHT.
--- NOTE | 2021-05-14 18:19 | NUR ---
Dietitian Recommendations * Renal, finely chopped diet w/ Nepro TID (ONS provides 1260 kcal/day, 57 gm protein/day) * Snacks TID in-between meals * Encourage increase PO intakes * Adhere to pt food preferences * Consider appetite stimulant LP, RD Please refer to Nutrition F/U for details.
--- NOTE | 2021-05-14 19:35 | NUR ---
ROUNDS PATIENT RESTING COMFORTABLY IN BED, FAMILY AT THE BEDSIDE, VITALS STABLE. NO SIGNS OF ANY PAIN AND DISCOMFORT NOTED. ASSESSMENT DONE AND DOCUMENTED. SEE FLOWSHEET. NEEDS ATTENDED TO. CALL LIGHT PLACED WITHIN REACH.
[2021-05-14 20:00] VITALS: BP_SYST 124
[2021-05-15 00:07] VITALS: BP_SYST 113
--- NOTE | 2021-05-15 00:14 | NUR ---
ROUNDS PATIENT ASLEEP, RESPIRATIONS EVEN AND UNLABORED, WILL CONTINUE TO MONITOR.
[2021-05-15] MEDS ORDERED: VANCOMYCIN HCL 1 GM/NS PREMIX 250 ML IV ONE (05:00)
[2021-05-15] MEDS ORDERED: VANCOMYCIN HCL 1000 MG/VIAL IV ONE (05:52)
[2021-05-15] MEDS: D5/0.45 NS 1,000 ML IV SCH ×2 (06:17→13:00)
[2021-05-15 06:24] LABS: BASOPHILS % (AUTO) 0.4 % (0.0-2.0); EOSINOPHILS % (AUTO) 0.1 % (0.0-4.0); HEMATOCRIT 23.9 % (36-48); HEMOGLOBIN 7.9 g/dL (12.0-16.0); LYMPHOCYTES # (AUTO) 0.5 K/uL (1.0-5.5); LYMPHOCYTES % (AUTO) 4.4 % (20.5-51.5); MEAN CORPUSCULAR HEMOGLOBIN 31 pg (27-31); MEAN CORPUSCULAR HGB CONC 33 % (32-36); MEAN CORPUSCULAR VOLUME 95 fL (79.0-98.0); MONOCYTES # (AUTO) 0.8 K/uL (0.0-1.0); MONOCYTES % (AUTO) 6.7 % (1.7-9.3); NEUTROPHILS # (AUTO) 10.5 K/uL (1.8-7.7); NEUTROPHILS % (AUTO) 88.4 % (40.0-70.0); PLATELET COUNT (AUTO) 206 K/uL (130-430); RED BLOOD CELL COUNT(AUTO) 2.53 MIL/uL (4.2-6.2); WHITE BLOOD COUNT (AUTO) 11.9 K/uL (4.8-10.8)
--- NOTE | 2021-05-15 06:47 | NUR ---
CLOSING NOTES PATIENT AWAKE, NO COMPLAINTS AT THIS TIME, VITALS STABLE. ALL NEEDS ATTENDED TO. CALL LIGHT PLACED WITHIN REACH.
[2021-05-15 08:00] VITALS: BP_SYST 135
[2021-05-15] MEDS: MEROPENEM 500 MG in NS 50 ML IV SCH ×2 (09:48→21:47)
[2021-05-15] MEDS: hydrALAZINE HCL 25 MG TABLET PO SCH ×2 (09:53→21:48)
[2021-05-15] MEDS: PANTOPRAZOLE SODIUM 40 MG TAB PO SCH (09:53)
[2021-05-15] MEDS: LEVOTHYROXINE SODIUM 0.025 MG TABLET PO SCH (09:53)
[2021-05-15] MEDS: NEPHROVITE, (FOLIC ACID/VITAMIN B COMP W-C 1 TAB) PO SCH (09:53)
[2021-05-15] MEDS: CARVEDILOL 6.25 MG TABLET (COREG) PO SCH ×2 (09:54→21:48)
[2021-05-15 12:27] LABS: ANION GAP 10 (5-15); CALCIUM 8.1 mg/dL (8.4-11.0); CHLORIDE 100 mmol/L (98-107); GLUCOSE 86 mg/dL (70-99); POTASSIUM 3.9 mmol/L (3.5-5.1); SODIUM SERUM 137 mmol/L (136-145); UREA NITROGEN, BLOOD 23 mg/dL (8-21)
[2021-05-15 12:28] LABS: ALANINE AMINOTRANSFERASE 14 U/L (12-78); ALBUMIN 1.8 g/dL (3.4-4.8); ASPARTATE AMINOTRANSFERASE 26 U/L (10-37); CREATININE 5.06 mg/dL (0.55-1.30); TOTAL BILIRUBIN 0.4 mg/dL (0.0-1.0)
[2021-05-15 13:00] VITALS: BP_SYST 123
[2021-05-15] MEDS: HYDROcodone/ACETAMIN 5-325 MG TAB (NORCO/ VICODIN) PO PRN ×2 (13:16→21:47)
--- NOTE | 2021-05-15 13:16 | NUR ---
PAIN. MEDICATED PT WITH 1/2 TABLET OF NORCO, DAUGHTER WATCHING AT BEDSIDE, WILL TURN THE PATIENT AGAIN TO HER SIDE AFTER HALF AN HOUR OF MEDICATION AND /OR WHEN MED IS TAKING EFFECT.
--- NOTE | 2021-05-15 14:15 | NUR ---
HYGIENE TURNED AND REPOSITIONED PT, BODY WARM TO TOUCH, TEMP 99.1, BED BATH PROVIDED, PT INCONTINENT OF BOWEL, SOFT LARGE BROWN STOOL. WOUND CARE DONE TO SACRAL AREA, GENTLY REPLACED PILLOWS UNDER HER RIGHT LEG.
--- NOTE | 2021-05-15 15:58 | NUR ---
FAMILY PT'S DAUGHTER ASKED TO GET HOLD OF THE SURGEON. SHE WANTED TO ASK IF THE SCD CAN COME OFF, SINCE IT'S BOTHERING THE PATIENT SO MUCH. CALLED AND SPOKE TO DR CAN, HE STATED THAT THOSE CAN BE TURNED OFF NOW FOR PT'S COMFORT AND MAY RESUME AT BEDTIME. ORDERS CARRIED OUT. INSTRUCTIONS GIVEN TO PATIENT'S DAUGHTER PATSY.
[2021-05-15 16:30] VITALS: BP_SYST 115
--- NOTE | 2021-05-15 17:51 | NUR ---
ABN LAB PAGED DR Svetlana MARTIN TO NOTIFY HIMOF PROCALCITONIN 13.95, HE RETURNED THE CALL AND MADE AWARE, PT ON IV VANCOMYCIN.
[2021-05-15 19:00] VITALS: BP_SYST 129
--- NOTE | 2021-05-15 19:15 | NUR ---
change of shift.pt.presents quiescent affect;calm,resting.pt.presents lethargic affect.pt.presents h/d hx;h/d access location; rt.forearm;thrill/bruit present per auditory assessment.pt.presents mid-line location:lt.bicept.iv fluids infusing.pt.presents wound;sacrum.to fu w wound care.pt.receivingo2-therapy administration via nasal cannulae.pt.presents s/p surgery;rt. knee arthroplasty per .rt.knee/leg rest upon pillows per protocol.call light/telephone w/in access of the pt.call light/telephone w/in access of the pt.
[2021-05-15 20:00] VITALS: BP_SYST 120
--- NOTE | 2021-05-15 20:00 | NUR ---
pt.assessed.v/s assessed values wnl.no c/o pain,nausea.o2-sat%=96%.mid-line intact iv fluids infusing.pt.assessed for cleanliness.pt.repositioned.general status stable.respiratory status stable.call light/telephone w/in access of the pt.
--- NOTE | 2021-05-15 21:00 | NUR ---
2100pmedications administered.pt.capable to ingest po medications whole slowly w/in swallow precautions parameters. pt.required medication;pain:norco;5/325mg 1/2 tablet administered.to assess the efficacy of the pain medication per pain mgx protocol.call light/telephone w/in access of the pt.
[2021-05-15] MEDS: ALPRAZolam 0.25 MG TABLET PO SCH (21:49)
--- NOTE | 2021-05-15 22:00 | NUR ---
pt.assessed.pt.presents quiescent affect;calm.per flacc pain mgx pt.absent facial grimaces/body posturing.pt.assessed for cleanliness.pt.repositioned.mid-line intact iv fluids infusing.rt.knee/leg rest upon pillows per protocol.call light/telephone w/in access of the pt.
--- NOTE | 2021-05-16 | NUR ---
pt.assessed.v/s assessed values wnl.no c/o pain,nausea.mid-line intact iv fluids infusing.pt.assessed for cleanliness. pt.repositioned.rt.knee/leg rest upon pillows wnl.call light/telephone w/in access of the pt.
[2021-05-16 00:38] VITALS: BP_SYST 116
--- NOTE | 2021-05-16 02:00 | NUR ---
pt.assessed.pt.presents quiescent affect;calm,somnolent.per flacc pain mgx pt.absent facial grimaces/body posturing.mid-line intact iv fluids infusing.pt.repositioned.rt.knee/leg rest upon pillows per protocol.call light/telephone placed w/in access of the pt.
--- NOTE | 2021-05-16 04:00 | NUR ---
pt.assessed.pt.presents quiescent affect;calm,resting.no c/o pain,nausea.mid-line intact iv fluids infusing.i have attended to the wound care;dsg applied.wound photographed.pt.cleaned/re-positioned.rt.knee/leg placed upon pillow protocol.call light/telephone placed w/in access of the pt.
--- NOTE | 2021-05-16 06:00 | NUR ---
pt.assessed.no c/o pain,nausea.pt.assessed for cleanliness.pt.repositioned.rt.knee/leg placed upon pillow per protocol. i have changed the mid-line dsg.iv fluids infusing.call light/telephone placed w/in access of the pt. Addendum: 05/16/21 at 0745 by Chalino Cartagena RN pt.weighed 2/t hemo-dialysis protocol.
--- NOTE | 2021-05-16 07:45 | NUR ---
OPENING NOTE Patient currently resting in bed and respirations remain even and non-labored on room air. Currently showing no signs of distress. Left midline is currently infusing fluids as ordered. Bed locked in lowest position and call light is within reach. Will continue to monitor.
[2021-05-16 08:00] VITALS: BP_SYST 116
[2021-05-16 08:12] LABS: BASOPHILS % (AUTO) 0.2 % (0.0-2.0); EOSINOPHILS # (AUTO) 0.1 K/uL (0.0-0.4); EOSINOPHILS % (AUTO) 0.8 % (0.0-4.0); HEMATOCRIT 22.4 % (36-48); HEMOGLOBIN 7.4 g/dL (12.0-16.0); LYMPHOCYTES # (AUTO) 0.5 K/uL (1.0-5.5); LYMPHOCYTES % (AUTO) 4.9 % (20.5-51.5); MEAN CORPUSCULAR HEMOGLOBIN 31 pg (27-31); MEAN CORPUSCULAR HGB CONC 33 % (32-36); MEAN CORPUSCULAR VOLUME 95 fL (79.0-98.0); MONOCYTES # (AUTO) 0.5 K/uL (0.0-1.0); MONOCYTES % (AUTO) 4.4 % (1.7-9.3); NEUTROPHILS # (AUTO) 9.5 K/uL (1.8-7.7); NEUTROPHILS % (AUTO) 89.7 % (40.0-70.0); PLATELET COUNT (AUTO) 151 K/uL (130-430); RED BLOOD CELL COUNT(AUTO) 2.36 MIL/uL (4.2-6.2); RED CELL DISTRIBUTION WIDTH 14.6 % (9.0-15.0); WHITE BLOOD COUNT (AUTO) 10.6 K/uL (4.8-10.8)
--- NOTE | 2021-05-16 08:32 | NUR ---
[facility] CALLED [facility]AGED TOM [facility] AT [phone] SPOKE WITH HAILEE.
[2021-05-16 08:55] LABS: ALANINE AMINOTRANSFERASE 5 U/L (12-78); ALBUMIN 1.5 g/dL (3.4-4.8); ANION GAP 6 (5-15); ASPARTATE AMINOTRANSFERASE 25 U/L (10-37); CALCIUM 7.9 mg/dL (8.4-11.0); CHLORIDE 99 mmol/L (98-107); CREATININE 5.99 mg/dL (0.55-1.30); GLUCOSE 89 mg/dL (70-99); PHOSPHORUS 4.5 mg/dL (2.7-4.5); SODIUM SERUM 132 mmol/L (136-145); TOTAL BILIRUBIN 0.3 mg/dL (0.0-1.0); UREA NITROGEN, BLOOD 31 mg/dL (8-21)
[2021-05-16] MEDS: LEVOTHYROXINE SODIUM 0.025 MG TABLET PO SCH (09:14)
[2021-05-16] MEDS: PANTOPRAZOLE SODIUM 40 MG TAB PO SCH (09:15)
[2021-05-16] MEDS: CARVEDILOL 6.25 MG TABLET (COREG) PO SCH ×2 (09:15→20:29)
[2021-05-16] MEDS: calcitrioL 0.25 MCG CAPSULE PO SCH (09:15)
[2021-05-16] MEDS: hydrALAZINE HCL 25 MG TABLET PO SCH ×2 (09:15→20:29)
[2021-05-16] MEDS: NEPHROVITE, (FOLIC ACID/VITAMIN B COMP W-C 1 TAB) PO SCH (09:16)
[2021-05-16] MEDS: MEROPENEM 500 MG in NS 50 ML IV SCH ×2 (09:16→20:47)
[2021-05-16] MEDS: D5/0.45 NS 1,000 ML IV SCH (09:17)
[2021-05-16] MEDS: HYDROcodone/ACETAMIN 5-325 MG TAB (NORCO/ VICODIN) PO PRN ×2 (09:46→14:19)
[2021-05-16 10:06] LABS: VANCOMYCIN,RANDOM 14.5 ug/mL
[2021-05-16 10:19] LABS: C-REACTIVE PROTEIN QUANT 17.3 mg/dL (0-0.5)
[2021-05-16] MEDS ORDERED: VANCOMYCIN HCL 1,000 MG in NS 250 ML IV ONE (12:00)
[2021-05-16 12:45] VITALS: BP_SYST 114
--- NOTE | 2021-05-16 14:24 | NUR ---
RN NOTE Patient done with dialysis. 2 L out. Patient's vital signs are stable. Complained of generalized pain. [place] given as ordered. Daughter at bedside and feeding patient lunch. Offered hygiene care but daughter requests for it to be done after lunch and physical therapy. Will continue to monitor.
--- NOTE | 2021-05-16 15:29 | NUR ---
Spoke with daughter at bedside Daughter raised some concerns regarding her mothers care. She requested that the [place] be given before turning/ repositioning or physical therapy and to stay on a consistent schedule so pain does not become unmanageable. Stated that Tylenol is not effective Dilaudid is too strong. She also requested she be present when wound care is to be done by wound RN tomorrow. She requested that patient not be turned at 1400 and 0400 as to give her mother time to rest. RN educated on importance of turning for wound heeling. Nurse distribution manager, Lelo deal. Daughter verbalized understanding of plan of care.
--- NOTE | 2021-05-16 16:00 | NUR ---
RN note Patient up with PT. On commode. Patient cleaned and in bed. Hygiene care done. Positioned for comfort. Both heels elevated, Right knee elevated on pillow. SCDs attached. Patient tolerated well. Will continue to monitor. Addendum: 05/16/21 at 1608 by Darya Moreno RN Patient' daughter refused dressing change, wants to "wait for wound care nurse" so she "can take pictures." Informed her that wound care nurse will not see her until tomorrow.
[2021-05-16] MEDS: ACETAMINOPHEN 325 MG TABLET PO PRN ×2 (16:19→20:48)
[2021-05-16] MEDS: EPOETIN ALFA-EPBX 4,000 UNITS/ML VIAL SUBCUT SCH (16:31)
[2021-05-16 16:50] VITALS: BP_SYST 106
--- NOTE | 2021-05-16 18:40 | NUR ---
CLOSING NOTE Patient currently resting in bed and respirations remain even and non-labored on 2 L NC. Patient tolerating supplemental oxygen well. Daughter at bedside. Left midline is infusing fluids as ordered. Bed locked in lowest position and call light is within reach. All needs met throughout shift. Will endorse to car shifter RN.
--- NOTE | 2021-05-16 18:54 | NUR ---
Spoke with daughter Does not want patient to have [place] in night because she is also on Xanax. Noted and will endorse to night nurse.
--- NOTE | 2021-05-16 19:30 | NUR ---
Opening note Received report from day shift. Pt is awake lying in bed with daughter at bedside. No s/s of respiratory distress. Breathing even and unlabored. IV site is intact and patent with fluids running at ordered rate. Fall and safety precautions in place with bed in lowest position, bed alarm on, and call light within reach
[2021-05-16 20:00] VITALS: BP_SYST 106
[2021-05-16] MEDS: ALPRAZolam 0.25 MG TABLET PO SCH (22:01)
--- NOTE | 2021-05-17 00:15 | NUR ---
Rounds Pt sleeping. No s/s of acute distress. Fall and safety checks in place
[2021-05-17 00:46] VITALS: BP_SYST 132
--- NOTE | 2021-05-17 01:33 | NUR ---
Blood transfusion Pt receiving 1 unit PRBCs, tolerating well. VSS.
[2021-05-17] MEDS: D5/0.45 NS 1,000 ML IV SCH (05:00)
[2021-05-17 06:32] LABS: BASOPHILS # (AUTO) 0.1 K/uL (0.0-0.2); BASOPHILS % (AUTO) 0.5 % (0.0-2.0); EOSINOPHILS # (AUTO) 0.1 K/uL (0.0-0.4); HEMATOCRIT 26.8 % (36-48); HEMOGLOBIN 8.8 g/dL (12.0-16.0); LYMPHOCYTES # (AUTO) 0.5 K/uL (1.0-5.5); MEAN CORPUSCULAR HEMOGLOBIN 30 pg (27-31); MEAN CORPUSCULAR HGB CONC 33 % (32-36); MEAN CORPUSCULAR VOLUME 92 fL (79.0-98.0); MONOCYTES # (AUTO) 0.8 K/uL (0.0-1.0); MONOCYTES % (AUTO) 6.8 % (1.7-9.3); NEUTROPHILS % (AUTO) 87.7 % (40.0-70.0); PLATELET COUNT (AUTO) 190 K/uL (130-430); RED BLOOD CELL COUNT(AUTO) 2.91 MIL/uL (4.2-6.2); RED CELL DISTRIBUTION WIDTH 16.3 % (9.0-15.0); WHITE BLOOD COUNT (AUTO) 11.4 K/uL (4.8-10.8)
--- NOTE | 2021-05-17 06:44 | NUR ---
Closing note Pt lying in bed, eyes closed. No s/s of respiratory distress. Breathing even and unlabored. Midline is intact and patent with fluids running at ordered rate. All needs met throughout shift. Fall and safety precautions in place with bed in lowest position, bed alarm on, and call light within reach
--- NOTE | 2021-05-17 07:30 | NUR ---
OPENING NOTE Received shift report from material handler 2nd shift RN. Patient currently resting in bed and respirations remain even and non-labored. Patient currently on 2 L NC and tolerating well. IV is patent and infusing fluids as ordered. Bed locked in lowest position and call light is within reach. Will continue to monitor.
[2021-05-17 08:00] VITALS: BP_SYST 160
[2021-05-17 08:10] VITALS: BP_SYST 160
[2021-05-17 08:18] LABS: ANION GAP 3 (5-15); CALCIUM 8.1 mg/dL (8.4-11.0); CHLORIDE 100 mmol/L (98-107); GLUCOSE 84 mg/dL (70-99); PHOSPHORUS 3.2 mg/dL (2.7-4.5); POTASSIUM 3.9 mmol/L (3.5-5.1); SODIUM SERUM 132 mmol/L (136-145); UREA NITROGEN, BLOOD 18 mg/dL (8-21)
[2021-05-17] MEDS: LEVOTHYROXINE SODIUM 0.025 MG TABLET PO SCH (09:09)
[2021-05-17] MEDS: hydrALAZINE HCL 25 MG TABLET PO SCH ×2 (09:10→20:31)
[2021-05-17] MEDS: NEPHROVITE, (FOLIC ACID/VITAMIN B COMP W-C 1 TAB) PO SCH (09:10)
[2021-05-17] MEDS: calcitrioL 0.25 MCG CAPSULE PO SCH (09:10)
[2021-05-17] MEDS: PANTOPRAZOLE SODIUM 40 MG TAB PO SCH (09:10)
[2021-05-17] MEDS: CARVEDILOL 6.25 MG TABLET (COREG) PO SCH ×2 (09:10→20:32)
[2021-05-17] MEDS: MEROPENEM 500 MG in NS 50 ML IV SCH ×2 (09:11→20:31)
--- NOTE | 2021-05-17 09:30 | NUR ---
Hygiene care done Patient cleaned and repositioned. Bed bath done, all linens changed. Patient c/o generalized pain. [place] PO given as ordered. Will continue to monitor.
[2021-05-17] MEDS ORDERED: HEPARIN SODIUM,PORCINE 5,000 UNITS/ML VIAL SUBCUT ONE (09:45)
[2021-05-17 10:03] LABS: VANCOMYCIN,RANDOM 23.4 ug/mL
--- NOTE | 2021-05-17 10:16 | NUR ---
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 RD met pt at bedside, w/ 2 daughters present in the room. Daughters reported that they bring food from home, but admits pt has been eating less than her usual. She also reported that pt is having episodes of diarrhea and associates that w/ poor PO intake and wounds to buttocks. Pt also refuses to drink Nepro as she believes it makes her diarrhea worse. Pt continues w/ HD support and c/o leg pain. Pt is POD3 S/P arthroplasty on right knee. Per EMR, pt is on 2L NC, abdomen is soft and nondistended w/ active bowel sounds. BM 05/17 x2, CXR on 05/16 showed right-sided infiltrate small effusion. Per vp marketing, wound to right buttock, lower sacrum and left buttocks, surgical incision to right knee, 2+ pitting edema to right knee. PO intake records indicate pt w/ negligible PO intake for more than 1 week, w/ refusal of meals. RD rec to address diarrhea first w/ Banatrol and provide Prosource per MD then Chaparro will be added by next f/u for wound healing. Pertinent Medications: synthroid, Nephrovite, Zofran, D5%/NaCl IV at 50ml/hr (204 calories/day) Pertinent Labs: 05/17 Na 132L, K 3.9, BG 84, BUNN18, Cre 3.9H, 05/16 ALB 1.5L Height: 5 feet/ 2.00 inches NEW Weight: 130#/ 59.137kg (05/16) Weight: 110 pounds/ 49.053238 kilograms -- stable since 05/05 Body Mass Index: 20.12 kg/m2. New: 23.8 kg./m2. [place]/Adjusted Body Weight: 110#/50 kg Weight Status: Underweight. Now WNL. Estimated Energy Expenditure (kcals/day) 7418-0265 kcal/day (30-35 kcal/kg CBW d/t sepsis) Estimated Protein Required (g/day) 60-75 gm/day (1.2-1.5 gm/kg CBW d/t ESRD/HD, sepsis) Estimated Fluid Required (l/day) Per physician d/t ESRD Problem/Etiology/Signs/Symptoms Suboptimal nutritional intakes related to metabolic demands as evidenced by negligible PO intake records x 15 days *ongoing Expected Outcomes/Goals - Monitor appetite and PO intakes w/ goal of pt meeting at least 75% of estimated nutritional needs, labs trending WNL, normal GI function, and skin integrity/wt maintenance Dietitian Recommendations * Recommend: add Banatrol TID, Prosource BID. * Add Chaparro BID by next RD f/u. * Continue Renal, finely chopped diet w/ Nepro TID (ONS provides 1260 kcal/day, 57 gm protein/day) * Snacks TID in-between meals * Encourage increase PO intakes * Adhere to pt food preferences. Family brings in food from home. Follow Up High Risk: F/U in 2-3 days
--- NOTE | 2021-05-17 10:30 | NUR ---
Dietitian Recommendations * Recommend: add Banatrol TID, Prosource BID. * Add Chaparro BID by next RD f/u. * Continue Renal, finely chopped diet w/ Nepro TID (ONS provides 1260 kcal/day, 57 gm protein/day) * Snacks TID in-between meals * Encourage increase PO intakes * Adhere to pt food preferences. Family brings in food from home. Please see Nutrition F/U for details.
[2021-05-17 11:39] VITALS: BP_SYST 159
[2021-05-17 11:58] LABS: ERYTHROCYTE SEDIMENTATION RATE 41 MM/HR (0-20)
--- NOTE | 2021-05-17 13:10 | NUR ---
Wound Care Consult Attempted: Spoke with OLIVIA Lackey, as this freelance writer was attempting to assess the patient. Darya said that patient's daughter did not wish the wound to be assessed in front of her sister, who was currently present. Darya will follow up and inform the Wound Vice President Of Communications (this freelance writer) of an appropriate time to assess the patient as per the patient's daughter.
[2021-05-17] MEDS: HYDROcodone/ACETAMIN 5-325 MG TAB (NORCO/ VICODIN) PO PRN (13:39)
--- NOTE | 2021-05-17 13:55 | NUR ---
Spoke w/ Dr Rincon-he stated patient is stable for DC from orthopedic standpoint-F/U with him in 3 weeks
--- NOTE | 2021-05-17 15:27 | NUR ---
WOUND EVALUATION: Wound Consult received from Dr. Toni Campoverde. Thank you, Dr. Campoverde, for the consult. Patient received in a Merry Bed with an Isoflex LESLYE mattress, awake, alert, confused. Patient is unable to turn in bed independently. Milton Score is a 14. Past Medical History: End-Stage Renal Failure, on dialysis, Hypertension, heart failure, kidney transplant. Patient came to ER with worsening right knee pain and swelling, an arthrocentesis was done by the ER physician, where pus was drained out. Recent Labs: WBC 11.4, RBC 2.91, hemoglobin 8.8, hematocrit 26.8, ESR 41, sodium 132, BUN 18, creatinine 3.90, calcium 8.1, C-reactive protein 18.0, albumin 1.5, serum total protein 4.9, procalcitonin 13.95, PTT 41.0, fibrinogen 734. Microbiology: Blood culture results x2 negative. Surgical culture results negative for aerobic culture, in progress for anaerobic culture. Intrinsic factors that delay wound healing: End-Stage Renal Failure, Hypertension, heart failure, kidney transplant, severe hypoalbuminemia. Extrinsic factors that delay wound healing: Decreased mobility. Wound Assessment: 1. Bilateral Buttocks: Area of MASD with near mirror image on each side of intergluteal cleft, now converted to a Stage II pressure ulcer. Wound bed has 10% red tissue, 90% pink tissue. No odor, scant sanguineous drainage. Surrounding tissue has dark discolored tissue. Total wound area (left and right buttock combined) measures 3.2 cm x 5.5 cm, superficial depth. Recommend: Cleanse wound with normal saline. Apply moisture barrier cream to wound and bernardino-wound. Apply Venelex ointment to areas of wound bed not covered by moisture barrier cream. Cover with Sacral foam dressing. Perform wound care daily, and as needed for dressing soiling or dislodgement. 2. Left Heel: Blanchable redness. 3. Right Heel: Blanchable redness. Recommend: Elevate, offload and float bilateral heels with one pillow lengthwise under each extremity at all times. Also recommend: Encourage and assist patient with repositioning side to side only every 2 hours with pillow support and off-load pressure areas with pillows for pressure re-distribution. Offload, elevate and float bilateral heels with one pillow lengthwise under each extremity at all times. Perform skin care and monitor skin integrity Q shift. Use moisture barrier cream on buttocks and other moisture susceptible areas QID and as needed for soiling. Low air-loss therapy was initiated. Will order P500 low air-loss mattress. Patient's daughter was present throughout assessment and was informed of stage II pressure ulcer, as well as the treatment plan. In addition, nursing staff informed me that the patient's daughter did not want us to turn the patient during the nighttime. Educated daughter that the wound would not heal, and in fact would get worse if the patient was not turned.
--- NOTE | 2021-05-17 15:27 | NUR ---
RN NOTE Wound eval and wound care done with wound nurse. Patient cleaned and repositioned. Educated patient and daughter on wound treatment and healing process. Educated on importance of turning Q 2 hours. Patient tolerated procedure well. Will continue to monitor.
--- NOTE | 2021-05-17 15:30 | NUR ---
Family Member Informed Of Pressure Ulcer: Patient's daughter (Miss Bush) was present throughout assessment and was informed of stage II pressure ulcer, as well as the treatment plan. Educated daughter on importance of turning patient side to side only every 2 hours to offload wound site, otherwise it would not heal. Wound care consult and went to change gloves he noticed that the patient's daughter had her phone out and was about to take a picture. She was informed not that photos were not allowed, she took a picture anyway stating that she already told "Liv" that she was going to take photos.
[2021-05-17 16:21] VITALS: BP_SYST 155
[2021-05-17] MEDS ORDERED: BALSAM PERU/CASTOR OIL 60 GM OINT...G. TP ONE (17:15)
--- NOTE | 2021-05-17 17:31 | NUR ---
PAIN Asked patient if she had any pain. Stated that her pain was "11/10." RN asked patient if she wanted Hope as ordered. Before patient could respond, daughter stated that she did not want the patient to have any more pain medication for the day because it was too close to the time Xanax was due. Educated patient and her daughter on importance of treating pain promptly. Daughter still refused all pain medications throughout the night.
--- NOTE | 2021-05-17 18:37 | NUR ---
CLOSING NOTE Patient currently resting in bed and respirations remain even and non-labored on 2 L NC. Midline is patent and infusing fluids as ordered. Daughter at bedside. Bed in lowest position and call light is within reach. Will endorse to lieutenant shift supervisor RN.
--- NOTE | 2021-05-17 19:30 | NUR ---
Opening note Received report from day shift. Pt is awake lying in bed with daughter at bedside. No s/s of respiratory distress. Breathing even and unlabored on 2L nasal cannula. SUELLEN midline is intact and patent with fluids running at ordered rate. Fall and safety precautions in place with bed in lowest position, bed alarm on, and call light within reach
[2021-05-17 20:00] VITALS: BP_SYST 141
[2021-05-17] MEDS: HEPARIN SODIUM,PORCINE 5,000 UNITS/ML VIAL SUBCUT SCH (20:43)
[2021-05-17] MEDS: ACETAMINOPHEN 325 MG TABLET PO PRN (20:44)
--- NOTE | 2021-05-17 20:45 | NUR ---
Daughter asked to take temperature, temp was 100.0. Offered to give pt cooling measures and Tylenol. Daughter stated she did not want to mask the fever but agreed with Tylenol administration.
[2021-05-17] MEDS ORDERED: HEPARIN SODIUM,PORCINE 5,000 UNITS/ML VIAL SUBCUT SCH (21:00)
[2021-05-17] MEDS: ALPRAZolam 0.25 MG TABLET PO SCH (22:18)
--- NOTE | 2021-05-18 00:16 | NUR ---
Rounds Pt is sleeping. No s/s of acute distress. Fall and safety checks in place
[2021-05-18 00:36] VITALS: BP_SYST 118
[2021-05-18] MEDS: D5/0.45 NS 1,000 ML IV SCH ×2 (01:00→21:00)
--- NOTE | 2021-05-18 07:01 | NUR ---
Closing note Pt lying in bed, eyes closed. No s/s of respiratory distress. Breathing even and unlabored. Midline is intact and patent with fluids running at ordered rate. Wound care provided. All needs met throughout shift. Fall and safety precautions in place with bed in lowest position, bed alarm on, and call light within reach
[2021-05-18 07:48] LABS: BASOPHILS % (AUTO) 0.4 % (0.0-2.0); EOSINOPHILS # (AUTO) 0.1 K/uL (0.0-0.4); EOSINOPHILS % (AUTO) 1.3 % (0.0-4.0); HEMATOCRIT 28.4 % (36-48); HEMOGLOBIN 9.4 g/dL (12.0-16.0); LYMPHOCYTES # (AUTO) 0.7 K/uL (1.0-5.5); LYMPHOCYTES % (AUTO) 6.2 % (20.5-51.5); MEAN CORPUSCULAR HEMOGLOBIN 31 pg (27-31); MEAN CORPUSCULAR HGB CONC 33 % (32-36); MEAN CORPUSCULAR VOLUME 93 fL (79.0-98.0); MONOCYTES # (AUTO) 0.9 K/uL (0.0-1.0); MONOCYTES % (AUTO) 7.7 % (1.7-9.3); NEUTROPHILS # (AUTO) 9.4 K/uL (1.8-7.7); NEUTROPHILS % (AUTO) 84.4 % (40.0-70.0); PLATELET COUNT (AUTO) 206 K/uL (130-430); RED BLOOD CELL COUNT(AUTO) 3.07 MIL/uL (4.2-6.2); RED CELL DISTRIBUTION WIDTH 16.1 % (9.0-15.0); WHITE BLOOD COUNT (AUTO) 11.2 K/uL (4.8-10.8)
[2021-05-18 08:00] VITALS: BP_SYST 125
--- NOTE | 2021-05-18 08:00 | NUR ---
Opening Notes: Pt lying in bed, eyes closed. No s/s of respiratory distress. Breathing even and unlabored. Midline is intact and patent with fluids running at ordered rate. Family at bedside. Fall and safety precautions in place with bed in lowest position, bed alarm on, and call light within reach.
[2021-05-18 08:08] LABS: ANION GAP 7 (5-15); CALCIUM 8.7 mg/dL (8.4-11.0); CHLORIDE 99 mmol/L (98-107); CREATININE 5.06 mg/dL (0.55-1.30); GLUCOSE 87 mg/dL (70-99); PHOSPHORUS 3.5 mg/dL (2.7-4.5); POTASSIUM 4.2 mmol/L (3.5-5.1); SODIUM SERUM 134 mmol/L (136-145); UREA NITROGEN, BLOOD 26 mg/dL (8-21)
--- NOTE | 2021-05-18 08:53 | NUR ---
Nephro: Called Dr. Correa for orders and left message c/o exchange Anna.
--- NOTE | 2021-05-18 08:55 | NUR ---
Nephro order: Spoke with Dr. Correa with orders for Hd today and let dialysis nurse call Nephro for orders.
[2021-05-18] MEDS: calcitrioL 0.25 MCG CAPSULE PO SCH (09:22)
[2021-05-18] MEDS: HYDROcodone/ACETAMIN 5-325 MG TAB (NORCO/ VICODIN) PO PRN (09:25)
[2021-05-18] MEDS: NEPHROVITE, (FOLIC ACID/VITAMIN B COMP W-C 1 TAB) PO SCH (09:25)
[2021-05-18] MEDS: PANTOPRAZOLE SODIUM 40 MG TAB PO SCH (09:26)
[2021-05-18] MEDS: LEVOTHYROXINE SODIUM 0.025 MG TABLET PO SCH (09:26)
[2021-05-18] MEDS: HEPARIN SODIUM,PORCINE 5,000 UNITS/ML VIAL SUBCUT SCH ×2 (09:28→21:07)
--- NOTE | 2021-05-18 09:30 | NUR ---
PT with pt: PT working with pt, moved to chair.
[2021-05-18] MEDS: BALSAM PERU/CASTOR OIL 60 GM OINT...G. TP SCH (09:36)
[2021-05-18 10:15] LABS: VANCOMYCIN,RANDOM 24.1 ug/mL
[2021-05-18 10:19] LABS: C-REACTIVE PROTEIN QUANT 16.3 mg/dL (0-0.5)
[2021-05-18] MEDS: MEROPENEM 500 MG in NS 50 ML IV SCH ×2 (11:01→21:05)
--- NOTE | 2021-05-18 11:32 | NUR ---
PT notification: PT informed RN that they will move pt back to bed before 1300 for hemodialysis.
[2021-05-18 12:16] VITALS: BP_SYST 124
--- NOTE | 2021-05-18 13:20 | NUR ---
Rounds: Pt lying in bed, Hemodialysis starting. No s/s of respiratory distress. Breathing even and unlabored. Midline is intact and patent with fluids running at ordered rate. Family at bedside. Fall and safety precautions in place with bed in lowest position, bed alarm on, and call light within reach.
[2021-05-18] MEDS: DIPHENHYDRAMINE INJ 50 MG/ML VIAL IVP PRN (14:42)
[2021-05-18] MEDS: hydrALAZINE HCL 25 MG TABLET PO SCH ×2 (16:14→21:06)
[2021-05-18] MEDS: CARVEDILOL 6.25 MG TABLET (COREG) PO SCH ×2 (16:14→22:28)
[2021-05-18 16:18] VITALS: BP_SYST 150
--- NOTE | 2021-05-18 17:10 | NUR ---
HEMODIALYSIS FINISH: HEMODIALYSIS FINISHED, VITALS STABLE, NO S/S OF RESPIRATORY DISTRESS.
[2021-05-18] MEDS: EPOETIN ALFA-EPBX 4,000 UNITS/ML VIAL SUBCUT SCH (18:13)
--- NOTE | 2021-05-18 18:28 | NUR ---
ICE PACK: PUT ICE PACK ON RIGHT KNEE, TO BE REMOVED AT 1910.
--- NOTE | 2021-05-18 18:29 | NUR ---
Closing note Pt lying in bed, eyes closed. No s/s of respiratory distress. Breathing even and unlabored. Midline is intact and patent with fluids running at ordered rate. Ice pack on right knee, to be removed at 1910. All needs met throughout shift. Fall and safety precautions in place with bed in lowest position, bed alarm on, and call light within reach
[2021-05-18 20:09] VITALS: BP_SYST 111
--- NOTE | 2021-05-18 21:07 | NUR ---
MED PASS PATIENT DUE MEDICATIONS GIVEN. VITAL SIGNS STABLE. NO C/O PAIN.
[2021-05-18 22:25] VITALS: BP_SYST 116
[2021-05-18] MEDS: ALPRAZolam 0.25 MG TABLET PO SCH (22:28)
--- NOTE | 2021-05-18 22:28 | NUR ---
MED PASS PATIENT DUE MEDICATIONS GIVEN. VITAL SIGNS STABLE.
[2021-05-19 00:16] VITALS: BP_SYST 108
--- NOTE | 2021-05-19 00:20 | NUR ---
ROUNDS PATIENT RESTING IN BED. NO DISTRESS NOTED. VITAL SIGNS STABLE.
--- NOTE | 2021-05-19 01:45 | NUR ---
BM PATIENT HAD LOOSE BOWEL MOVEMENT. INCONTINENCE CARE DONE. WOUND CARE DONE ON BILATERAL BUTTOCKS WOUND. DR. MARTIN MAKING ROUNDS MADE AWARE OF PATIENT 100.4 TEMPERATURE.
--- NOTE | 2021-05-19 03:00 | NUR ---
ROUNDS PATIENT RESTING IN BED. 02 SAT 99%. CALL LIGHT WITH IN REACH.
--- NOTE | 2021-05-19 05:05 | NUR ---
BM PATIENT HAD ANOTHER EPISODE OF LOOSE BM SMALL AMOUNT. AM CARE DONE.
[2021-05-19 06:51] LABS: BASOPHILS # (AUTO) 0.1 K/uL (0.0-0.2); BASOPHILS % (AUTO) 0.7 % (0.0-2.0); EOSINOPHILS # (AUTO) 0.1 K/uL (0.0-0.4); EOSINOPHILS % (AUTO) 1.3 % (0.0-4.0); HEMATOCRIT 27.3 % (36-48); HEMOGLOBIN 9.2 g/dL (12.0-16.0); LYMPHOCYTES # (AUTO) 0.7 K/uL (1.0-5.5); LYMPHOCYTES % (AUTO) 7.7 % (20.5-51.5); MEAN CORPUSCULAR HEMOGLOBIN 31 pg (27-31); MEAN CORPUSCULAR HGB CONC 34 % (32-36); MEAN CORPUSCULAR VOLUME 92 fL (79.0-98.0); MONOCYTES # (AUTO) 0.8 K/uL (0.0-1.0); MONOCYTES % (AUTO) 9.5 % (1.7-9.3); NEUTROPHILS # (AUTO) 7.2 K/uL (1.8-7.7); NEUTROPHILS % (AUTO) 80.8 % (40.0-70.0); PLATELET COUNT (AUTO) 221 K/uL (130-430); RED BLOOD CELL COUNT(AUTO) 2.97 MIL/uL (4.2-6.2); RED CELL DISTRIBUTION WIDTH 15.7 % (9.0-15.0); WHITE BLOOD COUNT (AUTO) 8.9 K/uL (4.8-10.8)
--- NOTE | 2021-05-19 07:01 | NUR ---
CLOSING NOTES PATIENT NEEDS ATTENDED. ICE PACK TO RT KNEE Q4 HR ORDERED. DAUGHTER AT BEDSIDE.
[2021-05-19 07:45] LABS: ANION GAP 7 (5-15); CALCIUM 8.4 mg/dL (8.4-11.0); CHLORIDE 100 mmol/L (98-107); GLUCOSE 90 mg/dL (70-99); POTASSIUM 3.8 mmol/L (3.5-5.1); SODIUM SERUM 137 mmol/L (136-145); UREA NITROGEN, BLOOD 19 mg/dL (8-21)
[2021-05-19 07:56] VITALS: BP_SYST 127
[2021-05-19] MEDS: CARVEDILOL 6.25 MG TABLET (COREG) PO SCH ×2 (09:12→21:22)
[2021-05-19] MEDS: MEROPENEM 500 MG in NS 50 ML IV SCH ×2 (09:12→21:14)
[2021-05-19] MEDS: hydrALAZINE HCL 25 MG TABLET PO SCH ×2 (09:13→21:37)
[2021-05-19] MEDS: NEPHROVITE, (FOLIC ACID/VITAMIN B COMP W-C 1 TAB) PO SCH (09:13)
[2021-05-19] MEDS: PANTOPRAZOLE SODIUM 40 MG TAB PO SCH (09:13)
[2021-05-19] MEDS: calcitrioL 0.25 MCG CAPSULE PO SCH (09:13)
[2021-05-19] MEDS: LEVOTHYROXINE SODIUM 0.025 MG TABLET PO SCH (09:13)
[2021-05-19] MEDS: HYDROcodone/ACETAMIN 5-325 MG TAB (NORCO/ VICODIN) PO PRN ×2 (09:14→14:04)
[2021-05-19 09:21] LABS: C-REACTIVE PROTEIN QUANT 12.5 mg/dL (0-0.5)
[2021-05-19] MEDS: HEPARIN SODIUM,PORCINE 5,000 UNITS/ML VIAL SUBCUT SCH ×2 (09:22→21:34)
[2021-05-19 10:00] LABS: ERYTHROCYTE SEDIMENTATION RATE 91 MM/HR (0-20)
[2021-05-19] MEDS: BALSAM PERU/CASTOR OIL 60 GM OINT...G. TP SCH (11:36)
[2021-05-19] MEDS ORDERED: VANCOMYCIN HCL 750 MG in NS 250 ML IV ONE (12:00)
[2021-05-19 12:16] VITALS: BP_SYST 117
--- NOTE | 2021-05-19 12:25 | NUR ---
Discharge Planning: DCP faxed [facility]-updated clinicals and DC order requesting room number [phone] P [phone]. Addendum: 05/19/21 at 1627 by Milly Lopez DP DCP followed up with Sofia Arambula [phone] C- [phone] at [facility], made her aware Mony De Paz from [facility] [phone] is arranging transport for dialysis. DCP to follow up
--- NOTE | 2021-05-19 13:37 | NUR ---
ORTHO MD DR WEEKS WAS CALLED, RE: CLEARANCE TO DISCHARGE. SPOKE TO HIS STAFF.
--- NOTE | 2021-05-19 14:15 | NUR ---
NOTE Pt was assisted back to bed from recliner by PT. Pt's O2 sats at 93%-94% on room air in bed. Family states pt does tend to drop O2 sats when pt is active.
--- NOTE | 2021-05-19 14:30 | NUR ---
CM: Together with Stacy met with Emmanuelle Eleazar, and other family member: Mara, Keshia Abran and one other female member discussing discharge planning to [facility]. Stacy explained the discharge process to discharge the pt one stable. Per Michelle BAKER, starting O2 weaning this pm. Emmanuelle wants to tour the facility first . She also disagreed with the MD discharge order. Stacy explained about the discharge options, to snf vs to home with home health criteria. Also providing the 2 nd IM letter, and the copy of the signed first IM letter notification upon admission and the transfer to snf agreement form to Emmanuelle. She has not signed yet. CM will follow up. Emmanuelle requested to see dr. Rincon which Stacy confirmed with the MD to see the pt around 1530 pm.
--- NOTE | 2021-05-19 14:55 | NUR ---
Note Stacy HOLLIS) and Lisandro (LETA) spent time with pt and her family regarding discharge to SNF. Stacy HOLLIS) spoke to Dr Rincon on the phone at this time, Dr Rincon stated as soon as he finishes surgery he will come to pt's room to assess pt's right knee and assess if pt can be discharged to SNF. MD will speak to pt and pt's family regarding questions/concerns they have. Stacy HOLLIS) in the room at this time giving family paperwork they requested for discharge.
--- NOTE | 2021-05-19 15:35 | NUR ---
CM: Dr Rincon came in and is speaking with dr. Handley at this time.
--- NOTE | 2021-05-19 16:00 | NUR ---
Note Dr Rincon came to pt's bedside at 1530 and assessed right knee - dressing was cleaned and changed by Dr Rincon. Dr Rincon spoke to pt's daughter Dianne - answered questions/concerns. Discharge instructions were given to pt's daughter for SNF. Dr Rincon has cleared pt for transfer to SNF at this time. Pt denies any severe right knee pain at this time. Pt resting in bed at this time on room air. O2 sats above 92%.
[2021-05-19] MEDS: D5/0.45 NS 1,000 ML IV SCH (16:02)
[2021-05-19 16:38] VITALS: BP_SYST 114
[2021-05-19] MEDS ORDERED: ACETAMINOPHEN 325 MG TABLET PO PRN (16:45)
--- NOTE | 2021-05-19 18:05 | NUR ---
Note Pt has HOB up and is being assisted eating her dinner by her daughter Dianne. Pt was checked on q1' and PRN all shift for needs and care. Pt's bed in low position all shift. Pt has had family members at bedside all shift to assist her with needs and care. Pt's SUELLEN midline intact and patent. Pt's pain tolerable at this time. Call light within reach.
--- NOTE | 2021-05-19 19:25 | NUR ---
CHANGE OF SHIFT; endorsed by day shift. no acute distress. admitted fro rt. knee pain. on fall risk precaution, bed alarm on. call light within reach.
--- NOTE | 2021-05-19 21:00 | NUR ---
NOTES: pt. daughter called and her mom needs to be change. helped DISTRIBUTION SYSTEMS SERVICEPERSON ,had a soft brown bowel movement. kept dry, applied z nimisha on groin area, getting pretty red. noted swelling and pain on rt. leg /knee jeffrey. on movement. small dressing on rt. knee and keep elevated with pillow. repositioned with HOB slightly elevated. IV infusing via left upper arm midline. VS checked. O2 sat 88% on room air, instructed on deep breathing. O2 @ 2 liters put on , O2 sat up to 96%, will keep overnight. pt. denies any shortness of breath. AV shunt on rt. arm, access for HD, schedule tomorrow. on groundwater monitoring technician and shows sinus tach. bed alarm on.call light at bedside.
[2021-05-19] MEDS: ALPRAZolam 0.25 MG TABLET PO SCH (21:15)
--- NOTE | 2021-05-19 21:40 | NUR ---
NOTES: all due medications taken well including Xanax po. daughter remain at bedside. Addendum: 05/20/21 at 0402 by Karina Suggs RN late entry PTT 41 last taken 05/16 (pt. on Heparin SQ)
[2021-05-20 00:10] VITALS: BP_SYST 167
[2021-05-20] MEDS: cloNIDine HCL 0.1 MG TABLET PO PRN (00:44)
--- NOTE | 2021-05-20 00:45 | NUR ---
NOTES: medicated with clonidine po for BP 167/68. pt. ask for bedpan, have ENVIRONMENTAL STUDIES PROGRAM DIRECTOR helped her.
--- NOTE | 2021-05-20 02:45 | NUR ---
NOTES: pt. pulls out her lead, checked, replace a new patch, pt. pretty awake. needs attended.
--- NOTE | 2021-05-20 03:52 | NUR ---
NOTES: pt. keeps pulling out patches on her tele monitor, replaced patches again, pretty awake. condition observed.
--- NOTE | 2021-05-20 04:35 | NUR ---
NOTES: had another bm, bernardino care done with CNA. bryan bansal on bilateral groin. sacral wound dressing changed, cleanse with NS/pat dry venelex oint. applied and sacral foam dressing. repositioned.
--- NOTE | 2021-05-20 06:40 | NUR ---
CLOSING NOTES; pt. sleeping at this time. for further care and assist. IV intact. on fall risk precaution, bed alarm on. call light at bedside. will endorse to incoming. lab called unable to draw blood, will endorse .
[2021-05-20 07:44] VITALS: BP_SYST 122
[2021-05-20 08:19] LABS: BASOPHILS # (AUTO) 0.1 K/uL (0.0-0.2); BASOPHILS % (AUTO) 0.8 % (0.0-2.0); EOSINOPHILS # (AUTO) 0.1 K/uL (0.0-0.4); EOSINOPHILS % (AUTO) 1.4 % (0.0-4.0); LYMPHOCYTES # (AUTO) 0.7 K/uL (1.0-5.5); LYMPHOCYTES % (AUTO) 8.1 % (20.5-51.5); MEAN CORPUSCULAR HEMOGLOBIN 30 pg (27-31); MEAN CORPUSCULAR HGB CONC 33 % (32-36); MEAN CORPUSCULAR VOLUME 92 fL (79.0-98.0); MONOCYTES % (AUTO) 11.6 % (1.7-9.3); NEUTROPHILS # (AUTO) 6.4 K/uL (1.8-7.7); NEUTROPHILS % (AUTO) 78.1 % (40.0-70.0); PLATELET COUNT (AUTO) 215 K/uL (130-430); RED BLOOD CELL COUNT(AUTO) 2.63 MIL/uL (4.2-6.2); RED CELL DISTRIBUTION WIDTH 15.5 % (9.0-15.0); WHITE BLOOD COUNT (AUTO) 8.2 K/uL (4.8-10.8)
[2021-05-20 08:29] LABS: ALBUMIN 1.5 g/dL (3.4-4.8); ANION GAP 9 (5-15); ASPARTATE AMINOTRANSFERASE 22 U/L (10-37); CALCIUM 7.9 mg/dL (8.4-11.0); CHLORIDE 100 mmol/L (98-107); CREATININE 4.87 mg/dL (0.55-1.30); GLUCOSE 107 mg/dL (70-99); PHOSPHORUS 3.7 mg/dL (2.7-4.5); POTASSIUM 3.7 mmol/L (3.5-5.1); SODIUM SERUM 135 mmol/L (136-145); TOTAL BILIRUBIN 0.3 mg/dL (0.0-1.0); UREA NITROGEN, BLOOD 34 mg/dL (8-21)
[2021-05-20 08:42] LABS: ALANINE AMINOTRANSFERASE 5 U/L (12-78)
[2021-05-20] MEDS: LEVOTHYROXINE SODIUM 0.025 MG TABLET PO SCH (08:46)
[2021-05-20] MEDS: calcitrioL 0.25 MCG CAPSULE PO SCH (08:46)
[2021-05-20] MEDS: HYDROcodone/ACETAMIN 5-325 MG TAB (NORCO/ VICODIN) PO PRN (08:46)
[2021-05-20] MEDS: NEPHROVITE, (FOLIC ACID/VITAMIN B COMP W-C 1 TAB) PO SCH (08:46)
[2021-05-20] MEDS: PANTOPRAZOLE SODIUM 40 MG TAB PO SCH (08:46)
[2021-05-20] MEDS: HEPARIN SODIUM,PORCINE 5,000 UNITS/ML VIAL SUBCUT SCH ×2 (08:47→20:49)
[2021-05-20] MEDS: hydrALAZINE HCL 25 MG TABLET PO SCH ×2 (08:53→20:48)
[2021-05-20] MEDS: CARVEDILOL 6.25 MG TABLET (COREG) PO SCH ×2 (08:53→20:48)
[2021-05-20] MEDS: MEROPENEM 500 MG in NS 50 ML IV SCH ×2 (08:53→20:48)
[2021-05-20] MEDS: BALSAM PERU/CASTOR OIL 60 GM OINT...G. TP SCH (08:54)
[2021-05-20 09:45] LABS: ERYTHROCYTE SEDIMENTATION RATE 103 MM/HR (0-20)
--- NOTE | 2021-05-20 09:55 | NUR ---
NOTE Dr Howard was at bedside at 0850am and explained tests and plan of care with pt's daughter Dianne. Questions/concerns were answered by MD. Pt drowsy, but easily arousable. Pt ate her breakfast wiht assist from her daughter at bedside. Pt took all her 09am PO medications at this time as well. Call light within reach.
--- NOTE | 2021-05-20 10:48 | NUR ---
ORTHO MD DR WEEKS WAS CALLED, RE: PAIN MEDICATION.
[2021-05-20] MEDS ORDERED: LIDOCAINE PATCH 5% 1 EA TP ONE (11:00)
--- NOTE | 2021-05-20 11:40 | NUR ---
Note Dr Rincon called back and order for Lidocaine Patch was received. Lidocaine patch applied on pt's right knee. Pt was in bedside recliner with ice pack on right knee. Ice pack removed and Lidocaine patch was applied. Family member at bedside stated that it was time for the ice pack to be removed. Parvez (PT) was called at this time to assist pt back to bed - hand flatwork finisher at bedside.
[2021-05-20 12:00] VITALS: BP_SYST 130
[2021-05-20] MEDS: DIPHENHYDRAMINE INJ 50 MG/ML VIAL IVP PRN (12:01)
[2021-05-20] MEDS: D5/0.45 NS 1,000 ML IV SCH (12:05)
[2021-05-20 16:08] VITALS: BP_SYST 121
[2021-05-20] MEDS: EPOETIN ALFA-EPBX 4,000 UNITS/ML VIAL SUBCUT SCH (16:11)
--- NOTE | 2021-05-20 17:10 | NUR ---
Note Pt's hemodialysis was completed at 1530. Portable chest x-ray was done at bedside at 1600. Pt drowsy and sleepy at this time. No needs noted. Pt's daughter was given the form for "Medical Release of Information" to fill and sign. Pt's daughter will return form when she has finished filling it to put in chart.
--- NOTE | 2021-05-20 18:07 | NUR ---
Nutrition F/U Admission Dx: Septic arthritis and hyperkalemia PMH: essential HTN, HLD, ESRD w/ prior renal transplant, which was rejected, back on HD with prior history of diastolic CHF per physician notes SARS-CoV-2 Ag (Rapid) Negative 05/02, Negative 05/11 Current Diet Order/Nutrition Support: Renal, finely chopped diet w/ Nepro TID, Banana Flakes TID, Prosource BID x3 days Subjective Info: RD rounded to pt's room this afternoon. Pt's daughter and irrigation laborer at bedside. Pt had started dialysis at 1210. Daughter reported that pt has been gradually taking new supplements and has not had any adverse affects (N/V/C/D). She stated she is not yet sure if pt's diarrhea has improved. RD introduced possibility of starting pt on Chaparro wound healing modular, and she stated she would like to try. RD also provided Chaparro sample kit. Daughter confirmed that she and her sister are still bringing preferred foods from home for pt. Per EMR review, PO intake average of 25% x6 meals; abd is soft and non-distended w/ active bowel sounds; last BM x4 12/3; Milton scale: 16 -- per Electrical/Instrument Technician note 05/17: 1. Bilateral Buttocks: Area of MASD with near mirror image on each side of intergluteal cleft, now converted to a Stage II pressure ulcer. 2. Left Heel: Blanchable redness. 3. Right Heel: Blanchable redness. Pt remains at increased risk for malnutrition. Pertinent Medications: synthroid, nephrovite, protonix, heparin Pertinent Labs: Na 135 L, K 3.7 l, BG 107 WNL, BUN 34 H, CRE 4.87 H, ALB 1.5 L Height: 5'2" NEW Weight: 130#/59.137kg (05/16) -- unsure of reliability Weight: 110#/49 kg -- stable since 05/05 Body Mass Index: 20.12 kg/m2. New: 23.8 kg./m2. [place]/Adjusted Body Weight: 110#/50 kg Weight Status: Underweight. Now WNL (05/16). Estimated Energy Expenditure (kcals/day) 4783-8613 kcal/day (30-35 kcal/kg CBW d/t sepsis, wound healing) Estimated Protein Required (g/day) 60-75 gm/day (1.2-1.5 gm/kg CBW d/t ESRD/HD, wound healing) Estimated Fluid Required (l/day) Per physician d/t ESRD Problem/Etiology/Signs/Symptoms Suboptimal nutritional intakes related to metabolic demands as evidenced by negligible PO intake records x18 days *ongoing Expected Outcomes/Goals - Monitor appetite and PO intakes w/ goal of pt meeting at least 75% of estimated nutritional needs, labs trending WNL, normal GI function, and skin integrity/wt maintenance Dietitian Recommendations * Renal, finely chopped diet w/ Nepro TID, Banatrol TID, Prosource BID, Chaparro BID (supplements provide 1560 kcal/day, 92 gm protein/day) * Snacks TID in-between meals * Encourage increase PO intakes * Adhere to pt food preferences * Family brings in food from home Follow Up High Risk: F/U in 2-3 days
--- NOTE | 2021-05-20 18:19 | NUR ---
Dietitian Recommendations * Renal, finely chopped diet w/ Nepro TID, Banatrol TID, Prosource BID, Chaparro BID (supplements provide 1560 kcal/day, 92 gm protein/day) * Snacks TID in-between meals * Encourage increase PO intakes * Adhere to pt food preferences * Family brings in food from home LP, RD Please refer to Nutrition F/U for details.
--- NOTE | 2021-05-20 18:25 | NUR ---
Note Pt still sleepy at this time. Pt was checked on q1' and PRN all shift for needs and care. Pt's bed in low position and bed alarm on all shift. Tele unit attached and intact all shift. SUELLEN IV intact and patent. Pt has been next to nurses' station for close observation. No needs noted at this time. Call light within reach. Pt has O2 on at 2L/nc all shift and is on low loss mattress all shift.
[2021-05-20 20:00] VITALS: BP_SYST 120
[2021-05-20] MEDS ORDERED: ALPRAZolam 0.25 MG TABLET ONE (20:39)
[2021-05-20] MEDS: LIDOCAINE PATCH 5% 1 EA TP SCH (20:47)
--- NOTE | 2021-05-20 22:00 | NUR ---
ROUNDING NOTES Patient resting in bed - no s/s pain or distress noted. Respirations even and unlabored - head of bed elevated 2L NC. IV site patent - no s/s redness, infection, or infiltration. Bed locked and in lowest position. Call light within reach - bed alarm on.
[2021-05-20] MEDS: ALPRAZolam 0.25 MG TABLET PO SCH (22:05)
[2021-05-21 01:01] VITALS: BP_SYST 110
[2021-05-21 07:32] LABS: BASOPHILS # (AUTO) 0.1 K/uL (0.0-0.2); BASOPHILS % (AUTO) 0.8 % (0.0-2.0); EOSINOPHILS # (AUTO) 0.1 K/uL (0.0-0.4); EOSINOPHILS % (AUTO) 1.5 % (0.0-4.0); HEMATOCRIT 26.1 % (36-48); HEMOGLOBIN 8.7 g/dL (12.0-16.0); LYMPHOCYTES # (AUTO) 0.8 K/uL (1.0-5.5); LYMPHOCYTES % (AUTO) 10.7 % (20.5-51.5); MEAN CORPUSCULAR HEMOGLOBIN 31 pg (27-31); MEAN CORPUSCULAR HGB CONC 33 % (32-36); MEAN CORPUSCULAR VOLUME 92 fL (79.0-98.0); MONOCYTES # (AUTO) 0.9 K/uL (0.0-1.0); MONOCYTES % (AUTO) 11.9 % (1.7-9.3); NEUTROPHILS # (AUTO) 5.7 K/uL (1.8-7.7); NEUTROPHILS % (AUTO) 75.1 % (40.0-70.0); PLATELET COUNT (AUTO) 254 K/uL (130-430); RED BLOOD CELL COUNT(AUTO) 2.83 MIL/uL (4.2-6.2); RED CELL DISTRIBUTION WIDTH 15.6 % (9.0-15.0); WHITE BLOOD COUNT (AUTO) 7.6 K/uL (4.8-10.8)
[2021-05-21 07:57] LABS: ANION GAP 7 (5-15); C-REACTIVE PROTEIN QUANT 9.8 mg/dL (0-0.5); CALCIUM 7.8 mg/dL (8.4-11.0); CHLORIDE 99 mmol/L (98-107); CREATININE 3.48 mg/dL (0.55-1.30); GLUCOSE 94 mg/dL (70-99); PHOSPHORUS 3.1 mg/dL (2.7-4.5); POTASSIUM 3.6 mmol/L (3.5-5.1); SODIUM SERUM 134 mmol/L (136-145); UREA NITROGEN, BLOOD 35 mg/dL (8-21); VANCOMYCIN,RANDOM 22.3 ug/mL
[2021-05-21 07:58] VITALS: BP_SYST 124
[2021-05-21] MEDS: HYDROcodone/ACETAMIN 5-325 MG TAB (NORCO/ VICODIN) PO PRN ×2 (08:14→14:56)
--- NOTE | 2021-05-21 08:15 | NUR ---
PT GIVEN PAIN MED PREMED FOR P.T.
[2021-05-21] MEDS: D5/0.45 NS 1,000 ML IV SCH ×2 (09:00→10:05)
[2021-05-21 09:02] LABS: ERYTHROCYTE SEDIMENTATION RATE 94 MM/HR (0-20)
[2021-05-21] MEDS: LIDOCAINE PATCH 5% 1 EA TP SCH ×2 (09:43→21:00)
[2021-05-21] MEDS: LEVOTHYROXINE SODIUM 0.025 MG TABLET PO SCH (09:48)
[2021-05-21] MEDS: NEPHROVITE, (FOLIC ACID/VITAMIN B COMP W-C 1 TAB) PO SCH (09:48)
[2021-05-21] MEDS: hydrALAZINE HCL 25 MG TABLET PO SCH ×2 (09:48→21:57)
[2021-05-21] MEDS: PANTOPRAZOLE SODIUM 40 MG TAB PO SCH (09:48)
[2021-05-21] MEDS: CARVEDILOL 6.25 MG TABLET (COREG) PO SCH ×2 (09:49→21:57)
[2021-05-21] MEDS: calcitrioL 0.25 MCG CAPSULE PO SCH (09:49)
[2021-05-21] MEDS: HEPARIN SODIUM,PORCINE 5,000 UNITS/ML VIAL SUBCUT SCH ×2 (09:51→22:07)
[2021-05-21] MEDS: BALSAM PERU/CASTOR OIL 60 GM OINT...G. TP SCH (09:57)
[2021-05-21] MEDS: MEROPENEM 500 MG in NS 50 ML IV SCH ×2 (10:05→21:56)
--- NOTE | 2021-05-21 12:05 | NUR ---
PT TURNED TO RIGHT SIDE AFTER WOUND CARE.
[2021-05-21 12:34] VITALS: BP_SYST 110
--- NOTE | 2021-05-21 14:00 | NUR ---
PT CLEANSED AFTER BM. TURNED / REPOSITIONED TO LEFT SIDE.
--- NOTE | 2021-05-21 14:41 | NUR ---
PT CALLED, FAMILY AT BEDSIDE. FAMILY C/O THAT PT WAS NOT CLEANED ENOUGH. CHECKED PT BY THIS RN AND SANDEEP FREDERICK. PT IS CLEAN, NO PEE NO POOP. PT REFUSED TO BE TURNED TO LEFT SIDE, WANTS TO BE ON HER BACK AGAIN.
--- NOTE | 2021-05-21 14:56 | NUR ---
PT GIVEN PAIN MED. FAMILY AT BEDSIDE
--- NOTE | 2021-05-21 16:30 | NUR ---
PAGED DR Carmen SNOWDEN PAGED DR Carmen SNOWDEN FOR DISCHARGE MEDICATIONS USING PAGER
[2021-05-21 16:35] VITALS: BP_SYST 115
--- NOTE | 2021-05-21 16:40 | NUR ---
CM: Anurag: CM received from [facility] , fax notification of CMS Detailed Notice of Discharge. The copy was delivered to alex Terry who was at bedside and HAMIDA Handley on speaker phone: Emmanuelle is waiting for Anurag to call her with the appeal decision. She said she has not received the call from [facility]. In addition, prior to the discharge she wants the distribution specialist nurse to do the final evaluation. She does not accept the primary RN for wound care instruction. Informed Emmanuelle that the RN will provide final discharge instruction upon discharge. >> CM notified that there was bed assigned at [facility], Transportation to snf has been approved. Transportation from snf to center has been arranged by [facility].
--- NOTE | 2021-05-21 16:42 | NUR ---
SPOKE WITH DR SNOWDEN AND GOT ORDER FOR DC BECAUSE ACCORDING TO TEST CONSULTANT MAURICIOE APPEAL WAS REJECTED. GOT ORDER TO DC PT WITH SAME MEDICATIONS.
--- NOTE | 2021-05-21 16:53 | NUR ---
PER CHARGE NURSE STAR, SPORTS ANALYST UVALDO TOLD HER THAT FAMILY WILL MAKE ANOTHER APPEAL AFTER FIRST APPEAL WAS REJECTED.
--- NOTE | 2021-05-21 17:03 | NUR ---
CM: communication with LETA Dang at [facility] MG # [phone], and faxed updated clinical and [place] info to fax # [phone]. Per Laurence: the pt has bed assigned to room 115 A , also from Breana at at [facility] , [place], confirmed same bed assignment, RN to report # [phone]. >> Transportation to [facility] already approved: To call [facility] , auth #[id number]. >> Transportation to and from HD Ctr has been arranged by Laurence. Family can get details from Breana at [facility] once arrived at the facility.
--- NOTE | 2021-05-21 19:30 | NUR ---
Opening note Received report from day shift. Pt is awake lying in bed with daughter at bedside. No s/s of respiratory distress. Breathing even and unlabored on 2L nasal cannula. SUELLEN midline is intact and patent. Fall and safety precautions in place with bed in lowest position, bed alarm on, and call light within reach
[2021-05-21 20:00] VITALS: BP_SYST 131
[2021-05-21] MEDS: ALPRAZolam 0.25 MG TABLET PO SCH (21:56)
--- NOTE | 2021-05-22 00:15 | NUR ---
Rounds Pt is sleeping. No s/s of acute distress. Daughter still at bedside, stated she will leave soon. Fall and safety checks in place
[2021-05-22 00:31] VITALS: BP_SYST 113
[2021-05-22] MEDS: D5/0.45 NS 1,000 ML IV SCH (05:00)
--- NOTE | 2021-05-22 06:32 | NUR ---
Closing note Pt lying in bed, eyes closed. No s/s of respiratory distress. Breathing even and unlabored. Midline is intact and patent running. All needs met throughout shift. Fall and safety precautions in place with bed in lowest position, bed alarm on, and call light within reach
--- NOTE | 2021-05-22 07:45 | NUR ---
OPENING NOTE Received shift report from night order selector RN. Patient AxOx4 currently resting in bed and respirations remain even and non-labored on 2 L NC. IV is patent and infusing fluids as ordered. Bed locked in lowest position and call light is within reach. Will continue to monitor.
[2021-05-22 07:49] LABS: BASOPHILS % (AUTO) 0.7 % (0.0-2.0); EOSINOPHILS # (AUTO) 0.1 K/uL (0.0-0.4); EOSINOPHILS % (AUTO) 1.9 % (0.0-4.0); HEMATOCRIT 25.3 % (36-48); HEMOGLOBIN 8.4 g/dL (12.0-16.0); LYMPHOCYTES # (AUTO) 0.5 K/uL (1.0-5.5); LYMPHOCYTES % (AUTO) 7.2 % (20.5-51.5); MEAN CORPUSCULAR HEMOGLOBIN 31 pg (27-31); MEAN CORPUSCULAR HGB CONC 33 % (32-36); MEAN CORPUSCULAR VOLUME 92 fL (79.0-98.0); MONOCYTES # (AUTO) 0.7 K/uL (0.0-1.0); MONOCYTES % (AUTO) 10.2 % (1.7-9.3); NEUTROPHILS # (AUTO) 5.9 K/uL (1.8-7.7); PLATELET COUNT (AUTO) 237 K/uL (130-430); RED BLOOD CELL COUNT(AUTO) 2.75 MIL/uL (4.2-6.2); RED CELL DISTRIBUTION WIDTH 15.5 % (9.0-15.0); WHITE BLOOD COUNT (AUTO) 7.3 K/uL (4.8-10.8)
[2021-05-22 08:00] VITALS: BP_SYST 122
[2021-05-22 08:07] LABS: ANION GAP 7 (5-15); CHLORIDE 99 mmol/L (98-107); CREATININE 4.85 mg/dL (0.55-1.30); GLUCOSE 82 mg/dL (70-99); PHOSPHORUS 3.7 mg/dL (2.7-4.5); POTASSIUM 3.9 mmol/L (3.5-5.1); SODIUM SERUM 135 mmol/L (136-145); UREA NITROGEN, BLOOD 57 mg/dL (8-21)
[2021-05-22] MEDS: MEROPENEM 500 MG in NS 50 ML IV SCH ×2 (09:28→20:20)
[2021-05-22] MEDS: LIDOCAINE PATCH 5% 1 EA TP SCH ×2 (09:28→20:25)
[2021-05-22] MEDS: LEVOTHYROXINE SODIUM 0.025 MG TABLET PO SCH (09:28)
[2021-05-22] MEDS: hydrALAZINE HCL 25 MG TABLET PO SCH ×2 (09:29→20:24)
[2021-05-22] MEDS: HYDROcodone/ACETAMIN 5-325 MG TAB (NORCO/ VICODIN) PO PRN ×2 (09:30→20:05)
[2021-05-22] MEDS: CARVEDILOL 6.25 MG TABLET (COREG) PO SCH ×2 (09:31→20:25)
[2021-05-22] MEDS: calcitrioL 0.25 MCG CAPSULE PO SCH (09:31)
[2021-05-22] MEDS: PANTOPRAZOLE SODIUM 40 MG TAB PO SCH (09:31)
[2021-05-22] MEDS: NEPHROVITE, (FOLIC ACID/VITAMIN B COMP W-C 1 TAB) PO SCH (09:31)
[2021-05-22] MEDS: BALSAM PERU/CASTOR OIL 60 GM OINT...G. TP SCH (09:32)
[2021-05-22] MEDS: HEPARIN SODIUM,PORCINE 5,000 UNITS/ML VIAL SUBCUT SCH ×2 (09:36→20:23)
[2021-05-22 10:41] LABS: C-REACTIVE PROTEIN QUANT 8.8 mg/dL (0-0.5); VANCOMYCIN,RANDOM 19.9 ug/mL
[2021-05-22 12:00] VITALS: BP_SYST 107
--- NOTE | 2021-05-22 12:00 | NUR ---
WOUND CARE/HYGIENE CARE Hygiene care performed. Performed wound care and applied Venelex ointment on wound bed. New dressing was applied. Patient cleaned and turned. Small bowel movement noted. Will continue to monitor.
[2021-05-22 12:04] LABS: ERYTHROCYTE SEDIMENTATION RATE 85 MM/HR (0-20)
--- NOTE | 2021-05-22 13:06 | NUR ---
Medical records requested Faxed to Anurag at 12:03 PM case # [id number] confirmation that medical records were received at 1:06 PM
[2021-05-22 16:00] VITALS: BP_SYST 117
--- NOTE | 2021-05-22 18:42 | NUR ---
CLOSING NOTE Patient currently resting in bed and respirations remain even and non-labored on 2 L NC. IV is patent and infusing fluids at KVO rate. Vital signs remained stable throughout shift. All needs met throughout shift. Bed locked in lowest position and call light is within reach. Will endorse to shift superintendent caustic cresylate RN.
--- NOTE | 2021-05-22 19:40 | NUR ---
Opening note Received patient resting in bed, no distress and nonlabored breathing on 2L NC. IV is KVO to midline in SUELLEN. Bed is locked in lowest position, side rails up and call light w/in reach. Daughter and family visiting at bedside. Patient informs that she wants pain med, will f/u. Updated board and reviewed plan of care.
[2021-05-22 20:00] VITALS: BP_SYST 133
--- NOTE | 2021-05-22 20:05 | NUR ---
pain med Patient reporting moderate pain and [place] 1/2 tab given as ordered.
--- NOTE | 2021-05-22 20:33 | NUR ---
scheduled med Given, patient was cooperative and swallowed meds. Daughter and family at bedside. IVPB infusing well, wctm
[2021-05-22] MEDS: ALPRAZolam 0.25 MG TABLET PO SCH (22:27)
[2021-05-22] MEDS: DIPHENHYDRAMINE INJ 50 MG/ML VIAL IVP PRN (23:03)
[2021-05-23 00:05] VITALS: BP_SYST 110
[2021-05-23] MEDS: D5/0.45 NS 1,000 ML IV SCH ×2 (04:33→21:00)
[2021-05-23] MEDS: HYDROcodone/ACETAMIN 5-325 MG TAB (NORCO/ VICODIN) PO PRN ×3 (04:41→15:27)
--- NOTE | 2021-05-23 05:04 | NUR ---
pain med Patient stated pain was a 6/10 on her right knee given pain medication [place] .5 tablet given. will continue to monitor.
--- NOTE | 2021-05-23 05:10 | NUR ---
Wound care, patient care Patient had BM and she was provided w/ pericare, clean linen and pad. Wound care and dressing chaged on buttocks wound. Updated MST chart.
--- NOTE | 2021-05-23 06:30 | NUR ---
closing note; Dr Tejada rounds; daughter called Dr. Tejada, making rounds; at bedside to see patient. Incoming call from daughter Mara and she was updated on patient's status during night. Informed needs were tended to and the last pain med was at 0440. Patient resting in comfortable position, no distress, will endorse care to day shift nurse.
[2021-05-23 07:22] LABS: BASOPHILS # (AUTO) 0.1 K/uL (0.0-0.2); BASOPHILS % (AUTO) 0.7 % (0.0-2.0); EOSINOPHILS # (AUTO) 0.2 K/uL (0.0-0.4); EOSINOPHILS % (AUTO) 2.8 % (0.0-4.0); HEMATOCRIT 25.5 % (36-48); HEMOGLOBIN 8.5 g/dL (12.0-16.0); LYMPHOCYTES # (AUTO) 0.6 K/uL (1.0-5.5); LYMPHOCYTES % (AUTO) 7.6 % (20.5-51.5); MEAN CORPUSCULAR HEMOGLOBIN 31 pg (27-31); MEAN CORPUSCULAR HGB CONC 33 % (32-36); MEAN CORPUSCULAR VOLUME 93 fL (79.0-98.0); MONOCYTES # (AUTO) 0.8 K/uL (0.0-1.0); MONOCYTES % (AUTO) 9.2 % (1.7-9.3); NEUTROPHILS # (AUTO) 6.7 K/uL (1.8-7.7); NEUTROPHILS % (AUTO) 79.7 % (40.0-70.0); PLATELET COUNT (AUTO) 285 K/uL (130-430); RED BLOOD CELL COUNT(AUTO) 2.75 MIL/uL (4.2-6.2); RED CELL DISTRIBUTION WIDTH 15.8 % (9.0-15.0); WHITE BLOOD COUNT (AUTO) 8.4 K/uL (4.8-10.8)
--- NOTE | 2021-05-23 07:42 | NUR ---
Opening note patient resting in bed, a/ox4, denies pain, the patient was offered breakfast she states that she does not want to eat breakfast yet at this time and that she will wait for her daughter, educated patient lesson instructor light system and plan of care, she verbalized understanding, call light placed within reach, turned and repositioned patient at this time, Midline is patent and infusing well, continuing to monitor the patient, bed in lowest position, three side rails up, bed alarm on, bed close to nursing station, fall and aspiration precautions in place.
[2021-05-23 08:06] LABS: ALANINE AMINOTRANSFERASE 7 U/L (12-78); ALBUMIN 1.7 g/dL (3.4-4.8); ANION GAP 8 (5-15); ASPARTATE AMINOTRANSFERASE 22 U/L (10-37); C-REACTIVE PROTEIN QUANT 8.5 mg/dL (0-0.5); CALCIUM 7.9 mg/dL (8.4-11.0); CHLORIDE 99 mmol/L (98-107); CREATININE 5.83 mg/dL (0.55-1.30); GLUCOSE 82 mg/dL (70-99); PHOSPHORUS 4.1 mg/dL (2.7-4.5); POTASSIUM 4.1 mmol/L (3.5-5.1); SODIUM SERUM 134 mmol/L (136-145); TOTAL BILIRUBIN 0.4 mg/dL (0.0-1.0); UREA NITROGEN, BLOOD 77 mg/dL (8-21); VANCOMYCIN,RANDOM 18.9 ug/mL
[2021-05-23 08:34] LABS: ERYTHROCYTE SEDIMENTATION RATE 93 MM/HR (0-20)
[2021-05-23 08:40] VITALS: BP_SYST 107
[2021-05-23 08:41] LABS: TOTAL IRON BIND. CAPACITY 86 ug/dL (250-450)
[2021-05-23] MEDS: MEROPENEM 500 MG in NS 50 ML IV SCH ×2 (08:52→21:12)
[2021-05-23] MEDS: HEPARIN SODIUM,PORCINE 5,000 UNITS/ML VIAL SUBCUT SCH ×2 (08:53→21:08)
[2021-05-23] MEDS: LIDOCAINE PATCH 5% 1 EA TP SCH ×2 (08:53→21:08)
[2021-05-23] MEDS: LEVOTHYROXINE SODIUM 0.025 MG TABLET PO SCH (08:53)
[2021-05-23] MEDS: PANTOPRAZOLE SODIUM 40 MG TAB PO SCH (08:53)
[2021-05-23] MEDS: NEPHROVITE, (FOLIC ACID/VITAMIN B COMP W-C 1 TAB) PO SCH (09:00)
[2021-05-23] MEDS: CARVEDILOL 6.25 MG TABLET (COREG) PO SCH ×2 (09:00→21:04)
[2021-05-23] MEDS: hydrALAZINE HCL 25 MG TABLET PO SCH ×2 (09:00→21:05)
[2021-05-23] MEDS: calcitrioL 0.25 MCG CAPSULE PO SCH (09:00)
[2021-05-23] MEDS: BALSAM PERU/CASTOR OIL 60 GM OINT...G. TP SCH (10:04)
--- NOTE | 2021-05-23 10:59 | NUR ---
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 SARS-CoV-2 Ag (Rapid) Negative 05/02, Negative 05/11 Current Diet Order/Nutrition Support: Renal, finely chopped diet w/ Nepro TID, Banana Flakes TID, Prosource BID x3 days Subjective Info: Pt was seen in bed, w/ daughter at bedside. Per EMR review, pt is on 2L NC, ordered for HD today, BM 12/6 x 5, abdomen is soft and nondistended. Pt was seen by Eyeglass Fitter on 05/17: 1. Bilateral Buttocks: Area of MASD with near mirror image on each side of intergluteal cleft, now converted to a Stage II pressure ulcer. 2. Left Heel: Blanchable redness. 3. Right Heel: Blanchable redness. Milton scale: 13, per RN notes, 2+ non-pitting edema to Right knee, non-pitting edema to right thigh/hip. Pt continues to consume 25% of meals for the past 6 days and is likely not meeting adequate nutrition, at increased risk for malnutrition. RD discussed w/ daughter on possible nutrition support via NGT as pt has been eating poorly >7 days. Daughter stated that she will s/w the rest of her siblings and come up w/ a decision. She also provided food preferences, she also mentioned that pt has always been a small eater and gets nauseated w/ big portions of meals. Daughter also asked RD to cancel Nepro as pt prefers the butter pecan flavor which is not available. RD informed kitchen staff. Pertinent Medications: synthroid, nephrovite, protonix, heparin Pertinent Labs: 05/23 Na 134 L, K 4.1, BG 82 WNL, BUN 77 H, CRE 5.83 H, ALB 1.7 L Height: 5'2" NEW Weight: 130#/59.137kg (05/16) -- unsure of reliability Weight: 110#/49 kg -- stable since 05/05 Body Mass Index: 20.12 kg/m2. New: 23.8 kg./m2. [place]/Adjusted Body Weight: 110#/50 kg Weight Status: Underweight. Now WNL (05/16). Estimated Energy Expenditure (kcals/day) 9936-0294 kcal/day (30-35 kcal/kg CBW d/t sepsis, wound healing) Estimated Protein Required (g/day) 60-75 gm/day (1.2-1.5 gm/kg CBW d/t ESRD/HD, wound healing) Estimated Fluid Required (l/day) Per physician d/t ESRD Problem/Etiology/Signs/Symptoms Suboptimal nutritional intakes related to metabolic demands as evidenced by negligible-poor PO intake records >14 days *improved but still inadequate. Increased protein-calorie needs r/t metabolic demands AEB estimated calorie and protein needs for wound healing. (*new) Expected Outcomes/Goals - Monitor appetite and PO intakes w/ goal of pt meeting at least 75% of estimated nutritional needs, labs trending WNL, normal GI function, and skin integrity/wt maintenance Dietitian Recommendations * Cancel Nepro per pt request. * Continue Renal, finely chopped diet w/ Banatrol TID, Prosource BID, [place] BID * Consider liberalizing diet to improve PO intake. * Snacks TID in-between meals * Encourage increase PO intakes * Adhere to pt food preferences * Family brings in food from home * Consider nutrition support via NGT once family is decided. Follow Up High Risk: F/U in 2-3 days
--- NOTE | 2021-05-23 11:09 | NUR ---
Dietitian Recommendations * Cancel Nepro per pt request. * Continue Renal, finely chopped diet w/ Banatrol TID, Prosource BID, [place] BID * Consider liberalizing diet to improve PO intake. * Snacks TID in-between meals * Encourage increase PO intakes * Adhere to pt food preferences * Family brings in food from home * Consider nutrition support via NGT once family is decided. Please see Nutrition F/U note for details.
[2021-05-23 12:45] VITALS: BP_SYST 123
--- NOTE | 2021-05-23 13:49 | NUR ---
RN rounds patient resting in bed, awake, being fed lunch by her daughter, aspiration precautions in place, no needs at this time, awaiting hemodialysis today, continuing to monitor the patient, bed in lowest position, three side rails up, bed alarm on, bed close to nursing station, fall precautions also in place.
--- NOTE | 2021-05-23 14:58 | NUR ---
NANY RECEIVED A CALL FROM [facility] STATING THAT UPON REVIEW, NANY AGREES WITH TERMINATION OF SERVICE EFFECTIVE MAY 24, 2021 ATR 12NOON. ARABELLA WILL FAX DETAILS AT [phone]. LETA BAILON MADE AWARE
--- NOTE | 2021-05-23 15:00 | NUR ---
Followed up on Hemodialysis called [facility] regarding Hemodialysis time today, spoke with Kian, Kian will follow up with Nivia, who arranges the hemodialysis treatments.
--- NOTE | 2021-05-23 15:32 | NUR ---
Hemodialysis beginning at this time, provided patient with pain medication per her request prior to starting hemodialysis, patient tolerated pain medication well, continuing to monitor the patient. Addendum: 05/23/21 at 1842 by Elmer Casillas RN 2L out - patient tolerated well.
--- NOTE | 2021-05-23 15:43 | NUR ---
DC planning per Hatchery Attendant the patient will be picked up via ambulance tomorrow 05/24/21 at 11 am going to [facility]. Wound care teaching to be given to the patient's available family member prior to discharge tomorrow. Spoke with wound care nurse Howie, regarding this and coordinated to do the wound care teaching with the patient's family present tomorrow prior to discharge. Patient's family requesting for specific wound care and medication instructions which will be provided by the primary RN upon discharge.
--- NOTE | 2021-05-23 15:52 | NUR ---
CM: LVM to Breana at at [facility], to confirm bed assignment room 115 A OLIVIA to report # [phone]. Informed pt is to be transferred from [facility] at 11 am. Addendum: 05/23/21 at 1646 by Lisandro Astorga RN Ambulance: Booked with [facility] with auth # [id number] for warehouse picker at 11 am. -- OLIVIA Payne made aware. Addendum: 05/24/21 at 1342 by Lisandro Astorga RN Called from [facility], given new ambulance auth for [facility] B[facility] # [id number]. CM updated the new auth to [facility] with khurram Castellano.
--- NOTE | 2021-05-23 16:04 | NUR ---
Spoke w/ patient's daughter, Dianne, she stated her mother would be discharged by noon tomorrow. She requested DC time to be 11AM. She also staed she will be here at 10 AM tomorrow to complete DC paperwork. She requested specific items from the patient's chart, I informed her she would need to request the patient's chart through the medical records dept.
[2021-05-23 16:16] VITALS: BP_SYST 135
--- NOTE | 2021-05-23 18:26 | NUR ---
Closing note patient resting in bed, hemodialysis is still ongoing at this time, did not administer 1700 medication due to hemodialysis at this time, will endorse report to NOC shift nurse, bed in lowest position, three side rails up, bed alarm on, call light within reach, fall and aspiration precautions in place.
--- NOTE | 2021-05-23 18:56 | NUR ---
Called Dr. Rincon asked to for MD to reassess the patient's right knee swelling per Dr. Post request.
--- NOTE | 2021-05-23 19:30 | NUR ---
Opening note Received patient resting in bed, no distress and nonlabored breathing on 2L NC. IV is KVO to midline in SUELLEN. Bed is locked in lowest position, side rails up and call light w/in reach. Daughter is at bedside. Meal tray is there and daughter informed that she will be feeding patient.
[2021-05-23 20:00] VITALS: BP_SYST 138
[2021-05-23] MEDS: EPOETIN ALFA-EPBX 4,000 UNITS/ML VIAL SUBCUT SCH (21:10)
--- NOTE | 2021-05-23 21:30 | NUR ---
Daughter going home Daughter is going home and she requested that he Xanax be given at or close to 2300. She also advised us not to give another [place] dose tonight.
--- NOTE | 2021-05-23 22:24 | NUR ---
comfort care Patient requesting lotion on hands and back and it was applied. She is awake, no distress and watching t.v.
[2021-05-23] MEDS: ALPRAZolam 0.25 MG TABLET PO SCH (23:19)
--- NOTE | 2021-05-23 23:45 | NUR ---
Patient care / wound care Patient had a bowel movement and she was provided with pericare, new linen and pad, she was repositioned and turned. Provided wound care; sacral/buttocks dressing changed; she tolerated.
[2021-05-24 00:27] VITALS: BP_SYST 123
--- NOTE | 2021-05-24 01:25 | NUR ---
resting / sleeping Patient is resting w/eyes closed, no distress, symmetrical rise and fall of chest. Call light w/in reach.
--- NOTE | 2021-05-24 05:00 | NUR ---
BM Patient had a bowel movement; which was noted light brown, loose and mild acidic odor. She was was provided with pericare, new linen and pad, and she was repositioned and turned. Changed soiled sacral dressing; she tolerated.
--- NOTE | 2021-05-24 05:25 | NUR ---
Midline dressing change Change with use of sterile technique per hospital policy.
--- NOTE | 2021-05-24 06:43 | NUR ---
closing note Patient resting in bed, with eyes closed, no distress and nonlabored breathing on 2L NC. IV is KVO to midline in SUELLEN. Safety and aspiration precautions observed; needs met throughout shift. Call light is w/in reach. Will endorse care.
[2021-05-24 07:17] LABS: BASOPHILS % (AUTO) 0.5 % (0.0-2.0); EOSINOPHILS # (AUTO) 0.2 K/uL (0.0-0.4); EOSINOPHILS % (AUTO) 1.8 % (0.0-4.0); HEMOGLOBIN 8.2 g/dL (12.0-16.0); LYMPHOCYTES # (AUTO) 0.7 K/uL (1.0-5.5); LYMPHOCYTES % (AUTO) 7.5 % (20.5-51.5); MEAN CORPUSCULAR HEMOGLOBIN 31 pg (27-31); MEAN CORPUSCULAR HGB CONC 33 % (32-36); MEAN CORPUSCULAR VOLUME 94 fL (79.0-98.0); MONOCYTES % (AUTO) 10.3 % (1.7-9.3); NEUTROPHILS # (AUTO) 7.5 K/uL (1.8-7.7); NEUTROPHILS % (AUTO) 79.9 % (40.0-70.0); PLATELET COUNT (AUTO) 250 K/uL (130-430); RED BLOOD CELL COUNT(AUTO) 2.67 MIL/uL (4.2-6.2); RED CELL DISTRIBUTION WIDTH 15.7 % (9.0-15.0); WHITE BLOOD COUNT (AUTO) 9.3 K/uL (4.8-10.8)
--- NOTE | 2021-05-24 07:30 | NUR ---
Opening note patient resting in bed, a/ox4, denies pain, educated patient economics instructor light system and plan of care, she verbalized understanding, call light placed within reach, turned and repositioned patient at this time, Midline is patent and infusing well, continuing to monitor the patient, bed in lowest position, three side rails up, bed alarm on, bed close to nursing station, fall and aspiration precautions in place.
[2021-05-24 08:09] LABS: ANION GAP 6 (5-15); CALCIUM 8.4 mg/dL (8.4-11.0); CHLORIDE 99 mmol/L (98-107); CREATININE 4.02 mg/dL (0.55-1.30); GLUCOSE 86 mg/dL (70-99); PHOSPHORUS 3.2 mg/dL (2.7-4.5); POTASSIUM 3.7 mmol/L (3.5-5.1); SODIUM SERUM 136 mmol/L (136-145); UREA NITROGEN, BLOOD 47 mg/dL (8-21)
[2021-05-24 08:37] VITALS: BP_SYST 103
[2021-05-24] MEDS: BALSAM PERU/CASTOR OIL 60 GM OINT...G. TP SCH (08:49)
[2021-05-24] MEDS: LEVOTHYROXINE SODIUM 0.025 MG TABLET PO SCH (08:51)
[2021-05-24] MEDS: calcitrioL 0.25 MCG CAPSULE PO SCH (08:51)
[2021-05-24] MEDS: HYDROcodone/ACETAMIN 5-325 MG TAB (NORCO/ VICODIN) PO PRN (08:51)
[2021-05-24] MEDS: PANTOPRAZOLE SODIUM 40 MG TAB PO SCH (08:51)
[2021-05-24] MEDS: NEPHROVITE, (FOLIC ACID/VITAMIN B COMP W-C 1 TAB) PO SCH (08:51)
[2021-05-24] MEDS: CARVEDILOL 6.25 MG TABLET (COREG) PO SCH (09:00)
[2021-05-24] MEDS: hydrALAZINE HCL 25 MG TABLET PO SCH (09:00)
--- NOTE | 2021-05-24 09:20 | NUR ---
WOUND RE-EVALUATION: Late note for 09 secondary to patient care. Patient received in a Merry Bed with a P500 low air-loss mattress, awake, alert, confused. Patient is unable to turn in bed independently. Milton Score is a 13. Past Medical History: End-Stage Renal Failure, on dialysis, Hypertension, heart failure, kidney transplant. Patient came to ER with worsening right knee pain and swelling, an arthrocentesis was done by the ER physician, where pus was drained out. Recent Labs: WBC 9.3, RBC 2.67, hemoglobin 8.2, hematocrit 25.0, ESR 93, carbon dioxide 31, BUN 47, creatinine 4.02, albumin 1.7, PTT 41.0, fibrinogen 734. Microbiology: Surgical culture results negative for aerobic and anaerobic cultures. Intrinsic factors that delay wound healing: End-Stage Renal Failure, Hypertension, heart failure, kidney transplant, severe hypoalbuminemia. Extrinsic factors that delay wound healing: Decreased mobility. Wound Assessment: 1. Left Buttock: Stage II pressure ulcer (prior area of MASD with mirror image on each side of intergluteal cleft). Wound bed has 100% pink tissue. No odor, no drainage. Angelique-wound intact. Surrounding tissue has dark discolored skin and scar tissue. Wound site measures 1.0 cm x 1.6 cm. Total wound area (left and right buttock combined) measures 2.5 cm x 5.0 cm, superficial depth (decreased size since last assessment). 2. Right Buttock: Stage II pressure ulcer (prior area of MASD with mirror image on each side of intergluteal cleft), now progressed to Stage III. Wound bed has 40% pink tissue, 60% thin liquidy non-stringy yellow tissue. No odor, no drainage. Angelique-wound intact. Surrounding tissue has dark discolored skin and scar tissue. Wound site measures 2.5 cm x 1.9 cm. Total wound area (left and right buttock combined) measures 2.5 cm x 5.0 cm, superficial depth (decreased size since last assessment). Recommend: Cleanse wounds with normal saline. Apply moisture barrier cream to angelique-wounds. Apply Venelex ointment to wound beds. Cover with Sacral foam dressing. Perform wound care daily, and as needed for dressing soiling or dislodgement. Reposition patient side to side only every 2 hours (do not place patient flat on her back at any time). 3. Inguinal/Perineal areas: Erythema from IAD/moisture release. Recommend: Cleanse involved areas with mild soap and water. Pat dry. Apply moisture barrier cream to involved areas. Perform site care 4 times daily and as needed for soiling. 4. Right Knee: Two small incisions from Arthroscopic Irrigation and Debridement. Incision ship's pilot holes are approximated with sutures. No odor, no drainage. No erythema nor calor. Extremity has moderate soft nonpitting edema. Right lower extremity circumference: Thigh 42.0 cm, knee 40.5 cm, colby inferior to knee 29.0 cm. Left lower extremity (non-operative extremity) circumference: Thigh 36.0 cm, knee 35.5 cm, colby inferior to knee 26.5 cm. 5. Left Heel: Blanchable redness. 6. Right Heel: Blanchable redness. Recommend continue: Elevate, offload and float bilateral heels with one pillow lengthwise under each extremity at all times. 7. Right Forearm: AV Shunt side. Patient's daughter requested assessment of scabs present. A. Right Anterior Forearm, Inferior to Antecubital area: Black scab formed over shunt site from Hemodialysis access. No odor, no drainage. Dry, stable. No erythema nor calor present. Scab measures 1.7 cm x 2.4 cm. B. Right Anterior Forearm, Inferior to Site 7A: Black scab formed over shunt site from Hemodialysis access. No odor, no drainage. Dry, stable. No erythema nor calor present. Scab measures 0.9 cm x 1.5 cm. Recommend: [place] sites with Betadine. Perform site care daily. Also recommend continue: Encourage and assist patient with repositioning side to side only every 2 hours with pillow support and off-load pressure areas with pillows for pressure re-distribution. Do not place patient flat on her back at any time. Offload, elevate and float bilateral heels with one pillow lengthwise under each extremity at all times. Perform skin care and monitor skin integrity Q shift. Use moisture barrier cream on buttocks and other moisture susceptible areas QID and as needed for soiling. Maintain patient on a P500 low air-loss mattress. Patient's daughter was present throughout assessment and was informed of Right Buttock Stage II Pressure Ulcer progressing to a Stage III.
[2021-05-24] MEDS: LIDOCAINE PATCH 5% 1 EA TP SCH (09:41)
[2021-05-24] MEDS: HEPARIN SODIUM,PORCINE 5,000 UNITS/ML VIAL SUBCUT SCH (09:41)
[2021-05-24] MEDS: MEROPENEM 500 MG in NS 50 ML IV SCH (09:42)
[2021-05-24 10:04] VITALS: BP_SYST 103
[2021-05-24 10:07] LABS: VANCOMYCIN,RANDOM 16.2 ug/mL
--- NOTE | 2021-05-24 10:15 | NUR ---
Called Report to [facility], spoke with July [phone].
--- NOTE | 2021-05-24 10:16 | NUR ---
CM: Faxed updated clinical reports to Sofia at [facility] fax# [phone], tel [phone]. Informed the pt will be transferred today, ambulance picking crew supervisor at 11 am to room 115A. --OLIVIA Payne aware.
--- NOTE | 2021-05-24 10:30 | NUR ---
Ambulance Received a call from [facility] - ambulance is delayed until 1130 AM today. Will follow up as needed.
--- NOTE | 2021-05-24 12:40 | NUR ---
PT TRANSFERRED Report given to July at [facility]. Transfer packet with Transfer Orders and Medication Reconciliation form given to EMT with report. Exitcare provided. [facility] ID band removed, replaced with ID band with pt's name and . Midline intact to the left upper arm. All belongings sent with patient. Patient left floor via gurney escorted by EMT in no distress.
[2021-05-25] MEDS ORDERED: VANCOMYCIN HCL 500 MG in NS 100 ML IV ONE (10:00)
== END 2021-05-24 12:40 | DRG 871 ==
LOC: SED 08:44 → STU 19:18 → SMU 20:29 → STU 20:30 → SIC 05-03 03:11 → STU 05-08 20:03
PROVIDERS: ADMIT Preventive Medicine Preventive Medicine/Occupational Environmental Medicine; ATTEND Preventive Medicine Preventive Medicine/Occupational Environmental Medicine
PROC: 0S9C3ZZ Drainage of Right Knee Joint, Percutaneous Approach (ICD-10-PCS; principal; 2021-05-02)
PROC: 5A1D70Z Performance of Urinary Filtration, Intermittent, Less than 6 Hours Per Day (ICD-10-PCS; 2021-05-02)
PROC: 5A1D70Z Performance of Urinary Filtration, Intermittent, Less than 6 Hours Per Day (ICD-10-PCS; 2021-05-04)
PROC: 5A1D70Z Performance of Urinary Filtration, Intermittent, Less than 6 Hours Per Day (ICD-10-PCS; 2021-05-06)
PROC: 5A1D70Z Performance of Urinary Filtration, Intermittent, Less than 6 Hours Per Day (ICD-10-PCS; 2021-05-09)
PROC: 5A1D70Z Performance of Urinary Filtration, Intermittent, Less than 6 Hours Per Day (ICD-10-PCS; 2021-05-11)
PROC: 5A1D70Z Performance of Urinary Filtration, Intermittent, Less than 6 Hours Per Day (ICD-10-PCS; 2021-05-13)
PROC: 3E1U48Z Irrigation of Joints using Irrigating Substance, Percutaneous Endoscopic Approach (ICD-10-PCS; 2021-05-14)
PROC: 5A1D70Z Performance of Urinary Filtration, Intermittent, Less than 6 Hours Per Day (ICD-10-PCS; 2021-05-16)
PROC: 30233N1 Transfusion of Nonautologous Red Blood Cells into Peripheral Vein, Percutaneous Approach (ICD-10-PCS; 2021-05-17)
PROC: 5A1D70Z Performance of Urinary Filtration, Intermittent, Less than 6 Hours Per Day (ICD-10-PCS; 2021-05-18)
PROC: 5A1D70Z Performance of Urinary Filtration, Intermittent, Less than 6 Hours Per Day (ICD-10-PCS; 2021-05-20)
PROC: 5A1D70Z Performance of Urinary Filtration, Intermittent, Less than 6 Hours Per Day (ICD-10-PCS; 2021-05-23)
DX: A41.59 Other Gram-negative sepsis (principal); N18.6 End stage renal disease; R65.21 Severe sepsis with septic shock; E43 Unspecified severe protein-calorie malnutrition; G92.9 Unspecified toxic encephalopathy; J96.01 Acute respiratory failure with hypoxia; M00.861 Arthritis due to other bacteria, right knee; I50.32 Chronic diastolic (congestive) heart failure; N17.9 Acute kidney failure, unspecified; E87.1 Hypo-osmolality and hyponatremia; I48.19 Other persistent atrial fibrillation; I13.2 Hypertensive heart and chronic kidney disease with heart failure and with stage 5 chronic kidney disease, or end stage renal disease; K82.8 Other specified diseases of gallbladder; M65.861 Other synovitis and tenosynovitis, right lower leg; D63.1 Anemia in chronic kidney disease; D69.6 Thrombocytopenia, unspecified; E03.9 Hypothyroidism, unspecified; E78.5 Hyperlipidemia, unspecified; E83.39 Other disorders of phosphorus metabolism; E87.5 Hyperkalemia; R73.9 Hyperglycemia, unspecified; I27.20 Pulmonary hypertension, unspecified; F03.90 Unspecified dementia, unspecified severity, without behavioral disturbance, psychotic disturbance, mood disturbance, and anxiety; E83.51 Hypocalcemia; E83.41 Hypermagnesemia; L89.152 Pressure ulcer of sacral region, stage 2; E86.0 Dehydration; M71.21 Synovial cyst of popliteal space [Baker], right knee; M10.9 Gout, unspecified; G47.00 Insomnia, unspecified; R19.03 Right lower quadrant abdominal swelling, mass and lump; Z20.822 Contact with and (suspected) exposure to COVID-19; B96.1 Klebsiella pneumoniae [K. pneumoniae] as the cause of diseases classified elsewhere; Z99.2 Dependence on renal dialysis; Z86.000 Personal history of in-situ neoplasm of breast; Z90.11 Acquired absence of right breast and nipple; Z79.01 Long term (current) use of anticoagulants; Z68.23 Body mass index [BMI] 23.0-23.9, adult; Z79.899 Other long term (current) drug therapy
CPT/HCPCS: 36415; 71045; 71250-TC; 73560-TC; 76376; 76700-TC; 78306; 80048; 80053; 80202; 82607; 82728; 82746; 82784; 82962; 83540; 83550; 83605; 83735; 83880; 84100; 84155; 84165; 84484; 84550; 85007; 85025; 85027; 85384; 85610-TC; 85651-TC; 85730-TC; 86022; 86140; 86431; 86886; 86900; 86901; 86920; 87040-TC; 87070-TC; 87075-TC; 87081; 89051-TC; 90935; 90937; 92610-GN; 93005; 93306; 93970; 93971; 94640; 94760; 96372; 96374; 97110-GP; 97112-GP; 97116-GP; 97530-GP; 99285; A9503; G0378; J0282; J0360; J0690; J0696; J1170; J1200; J1644; J1650; J1815; J2001; J2185; J2250; J2270; J2543; J2704; J3010; J3370; J3480; J3490; J7050; J7060; J7120; J7613; P9021; Q5106; Q9964; Q9967